=== PATIENT | female | born 1950 | race Caucasian/White ===

== ENCOUNTER 2018-10-03 07:06 | Day surgery (SDC) | payer MEDICARE, OTHER ==
[~2018-10-03] VITALS: Ht 162.6 cm; Wt 88.5 kg
[~2018-10-03 07:06] MED LIST: ASPIRIN EC81 MG; CALCIUM 600 +1 EA13 PO; CLONIDINE HCL0.1 MG PO; FISH OIL 1,2001 EACH PO; HYDROCODON-ACE1 EA10 PO; LANTUS SOL100 UNIT/1; METFORMIN HCL1000 MG PO; PRAVACHOL20 MG PO; RANITIDINE HCL300 M1 PO; TRIAMTERENE-HC1 EAC2 PO; VASOTEC5 MG PO
--- NOTE | 2018-10-03 08:49 | NUR ---
10/03/18 0849 Zoey Sykes 0991-PATIENT ARRIVED TO PACU ON 3L NC LAYING LEFT LATERAL REACTIVE TO VERBAL STIMULI DENIES PAIN OR NAUSEA. ABDOMEN SOFT
--- NOTE | 2018-10-03 16:51 | OR ---
[facility] [address], [place] [address] Signed DATE OF OPERATION: 10/03/2018 SURGEON: Eddi Carrington MD PREOPERATIVE DIAGNOSES: 1. Mother with a history of colon cancer age 87. 2. Both brothers with colonic polyps. 3. Diverticulosis. POSTOPERATIVE DIAGNOSES: 1. 4 mm polyps at 30 cm, 20 cm, and 12 cm. 2. Minimal to moderate sigmoid diverticulosis. PROCEDURE: Colonoscopy with hot biopsy. ESTIMATED BLOOD LOSS: None. INDICATIONS: Kaylyn is a 68-year-old female who presents for followup colonoscopy. She had a mother with colon cancer at age 87 and both her brothers ended up with colonic polyps. Kaylyn is also known to have mild to moderate sigmoid diverticulosis. In the office, I gave Kaylyn a pamphlet on colonoscopy. We looked at that together along with the risks including, but not limited to, gas bloating, crampy abdominal pain, bleeding, perforation requiring surgery, and missed diagnosis. We also discussed the need for IV conscious sedation. She had expressed understanding and wished to proceed. PROCEDURE NOTE: Kaylyn was taken in to our endoscopy suite and placed in the left lateral decubitus position. She was given IV sedation with 6 mg of Versed and 150 mcg of fentanyl. A digital rectal exam was performed and this was unremarkable. The adult colonoscope was introduced and advanced all around into the cecum under direct visualization of camera. It took some abdominal compression and some extra sedation in order to get the scope directly into the cecum itself. Her prep was quite good. The scope was then slowly withdrawn. We took pictures throughout for photodocumentation. We could easily see the appendiceal orifice and the ileocecal valve. The above-mentioned polyps were removed with the help of hot biopsy forceps. Again, she has minimal to moderate sigmoid diverticulosis. They are moderate in size, minimal to moderate in number, and scattered about. Upon retroflexion of the scope, there was no additional pathology noted above Electronically Signed By: EDDI CARRINGTON MD 10/03/18 1651 PATIENT NAME: KAYLYN MONGE OPERATIVE REPORT DATE OF : 46 REPORT #: [id number] PHYSICIAN: EDDI CARRINGTON MD PCP: SAPNA ALY MD REPORT IS CONFIDENTIAL AND NOT TO BE RELEASED WITHOUT AUTHORIZATION [facility] [address] [place] [id number] Signed the anal canal. After this, the gas was suctioned out and the colonoscope removed. Kaylyn tolerated the procedure quite well. RECOMMENDATIONS: I will see Kaylyn back in my office in 7 to 14 days to review her results. Based on her family history, she will need to continue colonoscopy every 5 years so long as her health holds up. MD EFREM Mazariegos/ALEXANDER /[id number] cc: MD Eddi Crawford MD Copies: SAPNA ALY MD, ANDREW L MD ~ Electronically Signed By: EDDI CARRINGTON MD 10/03/18 1651 PATIENT NAME: KAYLYN MONGE OPERATIVE REPORT DATE OF : 46 REPORT #: [id number] PHYSICIAN: EDDI CARRINGTON MD PCP: SAPNA ALY MD REPORT IS CONFIDENTIAL AND NOT TO BE RELEASED WITHOUT AUTHORIZATION
== END 2018-10-03 09:40 | disposition home or self-care (01) ==
LOC: DS 07:06 → OPS 07:06 → DS 08:15 → OPS 08:15
PROVIDERS: Colon & Rectal Surgery
PROC: 0DBE8ZZ Excision of Large Intestine, Via Natural or Artificial Opening Endoscopic (ICD-10-PCS; principal; 2018-10-03 08:15)
DX: Z12.11 Encounter for screening for malignant neoplasm of colon (principal); K63.5 Polyp of colon; K57.30 Diverticulosis of large intestine without perforation or abscess without bleeding; I12.9 Hypertensive chronic kidney disease with stage 1 through stage 4 chronic kidney disease, or unspecified chronic kidney disease; E11.22 Type 2 diabetes mellitus with diabetic chronic kidney disease; N18.3 Chronic kidney disease, stage 3 (moderate); E78.5 Hyperlipidemia, unspecified; Z88.0 Allergy status to penicillin; Z80.0 Family history of malignant neoplasm of digestive organs; Z83.71 Family history of colonic polyps; Z79.899 Other long term (current) drug therapy; Z79.4 Long term (current) use of insulin
CPT/HCPCS: 99153; G0500; J2250; J3010; J7120

== ENCOUNTER 2019-06-27 12:29 | Emergency (ER) | payer MEDICARE, OTHER ==
[~2019-06-27] VITALS: Ht 162.6 cm; Wt 88.5 kg
--- OUTSIDE RECORDS SUMMARY | ~2019-06-27 | XMS | Encounter Summary ---
Demographics + + + | Address | [address] | | | [place] [address] | + + + | Home Phone | | + + + | Preferred Language | Unknown | + + + | Marital Status | | + + + | Church Affiliation | Unknown | + + + | Race | Unknown | + + + | Ethnic Group | Unknown | + + + Author + + + | Author | [facility] | | | and [place] | + + + | Organization | [facility] | | | [...] Team Providers + +------+ + | Care Global Supply Chain Director Name | Role | Phone | + +------+ + PCP | Unavailable | + +------+ + Encounter Details +--------+ + + + + | Date | Type | Department | Care Team | Description | +--------+ + + + + | 04/11/ | Hospital | [facility] | | | | 2001 | Encounter | MED CTR GENERIC OP | | | | | | CONV DEPT [address] | | | | | | [address], | | | | | | [place] [address] | | | | | | [phone] | | | +--------+ + + + [...]
--- OUTSIDE RECORDS SUMMARY | ~2019-06-27 | XMS | Encounter Summary ---
Demographics + + + | Address | [address] | | | [place] [address] | + + + | Home Phone | | + + + | Preferred Language | Unknown | + + + | Marital Status | | + + + | Buddhist Affiliation | Unknown | + + + | Race | Unknown | + + + | Ethnic Group | Unknown | + + + Author + + + | Author | [facility] | | | and [place] | + + + | Organization | [facility] | | | [...] Team Providers + +------+ + | Care Integrated Circuit Layout Designer Name | Role | Phone | + +------+ + PCP | Unavailable | + +------+ + Encounter Details +--------+ + + + + | Date | Type | Department | Care Team | Description | +--------+ + + + + | 01/25/ | Hospital | [facility] | | | | 2006 | Encounter | MED CTR LABORATORY | | | | | | [address] | | | | | | [place] | | | | | | [address] | | | | | | [phone] | | | +--------+ + + + [...]
--- OUTSIDE RECORDS SUMMARY | ~2019-06-27 | XMS | Encounter Summary ---
Demographics + + + | Address | [address] | | | [place] [address] | + + + | Home Phone | | + + + | Preferred Language | Unknown | + + + | Marital Status | | + + + | Congregational Affiliation | Unknown | + + + | Race | Unknown | + + + | Ethnic Group | Unknown | + + + Author + + + | Author | [facility] | | | and [place] | + + + | Organization | [facility] | | | and [...] Team Providers + +------+ + | Care Service Consultant Name | Role | Phone | + +------+ + | Clarence Ontiveros | PCP | | | MD | | | + +------+ + Reason for Visit + + + | Reason | Comments | + + + | Diarrhea | x 5 days | + + + | Nausea | x 5 days/ occasional vomiting/ tested neg for inlfuenza on | | | tuesday | + + + Encounter Details +--------+---------+ + + + | Date | Type | Department | Care Team | Description | +--------+---------+ + + + | 10/10/ | Office | [facility] | Yana Magana | Diarrhea, | | 2018 | Visit | CARE [address] | Jeremy Harper MD | unspecified type | | | | [place] | [address] | (Primary Dx); Nausea | | | | [address] | [place] | | | | | [phone] | [address] | | | | | | | | +--------+---------+ + + + Social History + +-------+ +--------+------+ | Tobacco Use | Types | Packs/Day | Years | Date | | | | | Used | | + +-------+ +--------+------+ | Never Smoker | | | | | + +-------+ +--------+------+ + +---+---+---+ | Smokeless Tobacco: | | | | | Never Used | | | | + +---+---+---+ + + + | Sex Assigned at [...] + + documented as of this encounter Last Filed Vital Signs + + + + + | Vital Sign | Reading | Time Taken | Comments | + + + + + | Blood Pressure | 119/61 | 10/10/2017 2:51 PM | | | | | PDT | | + + + + + | Pulse | 72 | 10/10/2017 2:51 PM | | | | | PDT | | + + + + + | Temperature | 37.9 C (100.2 F) | 10/10/2017 2:51 PM | | | | | PDT | | + + + + + | Respiratory Rate | 16 | 10/10/2017 2:51 PM | | | | | PDT | | + + + + + | Oxygen Saturation | 94% | 10/10/2017 2:51 PM | | | | | PDT | | + + + + + | Inhaled Oxygen | - | - | | | Concentration | | | | + + + + + | Weight | 82.6 kg (182 lb) | 10/10/2017 2:51 PM | | | | | PDT | | + + + + + | Height | 162.6 cm (5' 4") | 10/10/2017 2:51 PM | | | | | PDT | | + + + + + | Body Mass Index | 31.24 | 10/10/2017 2:51 PM | | | | | PDT | | + + + + + documented in this encounter Patient Instructions Patient Instructions Yana Magana Jr., MD - 10/10/2017 2:00 PM PDTCall for stoo l culture results in 3 days Take medication as prescribed for nausea Follow-up with your primary care provider Go to the emergency room if your condition worsens documented in this encounter Progress Notes Jo-Ann Kirk RN - 10/10/2017 2:00 PM PDTAfter verifying identity, administered Ondanse nicola 8mg. SL as ordered per Dr. Magana. Jo-Ann Kirk Yana Coulter Jr., MD - 10/10/2017 2:00 PM Jose Juan Alatorre Chief Complaint: Diarrhea 3 times a day with one episode of vomiting daily for the past we ek HPI: Patient presents with a one-week history of illness. She's had diarrhea 3 times sarah y without blood or mucus and no abdominal pain over the past week. She's had nausea persist ently with one episode of vomiting daily. No blood in the vomitus. She denies cough or oth er symptoms. She denies recent travel or camping. She has not eaten anything unusual. She has not been exposed to other people with similar illness. She is diabetic Past medical history, past surgical history, medication reviewed. Physical Exam: No acute distress, alert and oriented, non-toxic in appearance BP 119/61 | Pulse 72 | Temp 37.9 C (100.2 F) (Temporal) | Resp 16 | Ht 1.626 m (5' 4") | Wt 82.6 kg (182 lb) | SpO2 94% | BMI 31.24 kg/m Chest: Good breath sounds bilaterally without rales rhonchi or wheezes Heart: Regular rhythm without murmur gallop or rub Abdomen: Soft, bowel sounds normal, no hepatosplenomegaly, no CVA tenderness, no localized tenderness guarding or rebound Diagnosis: Gastroenteritis Plan: Stool culture-call in 3 days, lactoferrin, Zofran, follow-up with primary care provi sara This note dictated with Rema and was not proofread. Emily field in this encounter Plan of Treatment Not on filedocumented as of this encounter Procedures + +--------+ + + + | Procedure Name | Priori | Date/Time | Associated Diagnosis | Comments | | | ty | | | | + +--------+ + + + | CAMPYLOBACTER | Routin | 10/10/2017 | Diarrhea, | Results for this | | AG,QUAL | e | 4:14 PM | unspecified type | procedure are in the | | | | PDT | | results section. | + +--------+ + + + | CULTURE, STOOL | Routin | 10/10/2017 | Diarrhea, | Results for this | | RESULT | e | 4:14 PM | unspecified type | procedure are in the | | | | PDT | | results section. | + +--------+ + + + | SHIGATOXIN 1 AND 2 | Routin | 10/10/2017 | Diarrhea, | Results for this | | | e | 4:14 PM | unspecified type | procedure are in the | | | | PDT | | results section. | + +--------+ + + + | LACTOFERRIN, FECAL, | Routin | 10/10/2017 | Diarrhea, | Results for this | | QUAL | e | 4:14 PM | unspecified type | procedure are in the | | | | PDT | | results section. | + +--------+ + + + | CULTURE, STOOL | Routin | 10/10/2017 | Diarrhea, | Results for this | | | e | 4:14 PM | unspecified type | procedure are in the | | | | PDT | | results section. | + +--------+ + + + documented in this encounter Results Lawrence Ag,Qual (10/10/2017 4:14 PM PDT) + + + + + + | Component | Value | Ref Range | Performed | Pathologist | | | | | At | Signature | + + + + + + | Campylobact | Negative | Negative | [facility] | | | er AG, Qual | | | [facility] | | | | | | MEDICAL | | | | | | CENTER - | | | | | | LABORATORY | | + + + + + + + + | Specimen | + + | Stool - Stool | | specimen (specimen) | + + + + + + + | Performing | Address | City/State/Zipcode | Phone Number | | Organization | | | | + + + + + | [facility] | [address] | [place] | [phone] | | [facility] | | [address] | | | - LABORATORY | | | | + + + + + Culture, Stool Result (10/10/2017 4:14 PM PDT) + + + + + + | Component | Value | Ref Range | Performed | Pathologist | | | | | At | Signature | + + + + + + | Culture | No Salmonella, Shigella, | | [facility] | | | | Aeromonas, Plesiomonas, | | [facility] | | | | E. coli O157 or | | MEDICAL | | | | Yersinia isolated. | | CENTER - | | | | | | LABORATORY | | + + + + + + | Culture | 4+ Usual FloraComment: | | [facility] | | | | Consistent with usual | | [facility] | | | | enteric marifer. | | MEDICAL | | | | | | CENTER - | | | | | | LABORATORY | | + + + + + + + + | Specimen | + + | Stool - Stool | | specimen (specimen) | + + + + + + + | Performing | Address | City/State/Zipcode | Phone Number | | Organization | | | | + + + + + | [facility] | [address] | [place] | [phone] | | [facility] | | [address] | | | - LABORATORY | | | | + + + + + Shigatoxin 1 and 2 (10/10/2017 4:14 PM PDT) + + + + + + | Component | Value | Ref Range | Performed | Pathologist | | | | | At | Signature | + + + + + + | Shigatoxin | Negative | Negative | [facility] | | | 1 | | | [facility] | | | | | | MEDICAL | | | | | | CENTER - | | | | | | LABORATORY | | + + + + + + | Shigatoxin | Negative | Negative | [facility] | | | 2 | | | [facility] | | | | | | MEDICAL | | | | | | CENTER - | | | | | | LABORATORY | | + + + + + + + + | Specimen | + + | Stool - Stool | | specimen (specimen) | + + + + + + + | Performing | Address | City/State/Zipcode | Phone Number | | Organization | | | | + + + + + | [facility] | [address] | [place] | [phone] | | [facility] | | [address] | | | - LABORATORY | | | | + + + + + Lactoferrin, Fecal, Qual (10/10/2017 4:14 PM PDT) + + + + + + | Component | Value | Ref Range | Performed | Pathologist | | | | | At | Signature | + + + + + + | Lactoferrin | Negative | Negative | [facility] | | | , Qual | | | [facility] | | | | | | MEDICAL | | | | | | CENTER - | | | | | | LABORATORY | | + + + + + + + + | Specimen | + + | Stool - Stool | | specimen (specimen) | + + + + + + + | Performing | Address | City/State/Zipcode | Phone Number | | Organization | | | | + + + + + | [facility] | [address] | [place], [place] | [phone] | | [facility] | | [address] | | | - LABORATORY | | | | + + + + + documented in this encounter Visit Diagnoses + + | Diagnosis | + + | Diarrhea, unspecified type - Primary | + + | Nausea Nausea alone | + + documented in this encounter Administered Medications + +--------+ +------+------+------+ | Medication Order | MAR | Action | Dose | Rate | Site | | | Action | Date | | | | + +--------+ +------+------+------+ | ondansetron (ZOFRAN ODT) | Given | 10/11/19 | 8 mg | | | | disintegrating tablet 8 mg 8 mg, | | 18 3:52 | | | | | Oral, ONCE, 10/10/17 at 1615, | | PM PDT | | | | | For 1 dose | | | | | | + +--------+ +------+------+------+ +---+---+ | | | +---+---+ documented in this encounter
--- OUTSIDE RECORDS SUMMARY | ~2019-06-27 | XMS | Clinical Summary ---
Demographics + + + | Address | [address] | | | [place] [address] | + + + | Home Phone | | + + + | Preferred Language | Unknown | + + + | Marital Status | | + + + | Quaker Affiliation | Unknown | + + + | Race | Unknown | + + + | Ethnic Group | Unknown | + + + Author + + + | Author | [facility] | | | and [place] | + + + | Organization | [facility] | | | and [...] Team Providers + +------+ + | Care Dietetics Director Name | Role | Phone | + +------+ + | Clarence Ontiveros | PCP | | | MD | | | + +------+ + Allergies + + + + + + | Active Allergy | Reactions | Severity | Noted | Comments | | | | | Date | | + + + + + + | Penicillins | | | 10/11/19 | hives | | | | | 18 | | + + + + + + Medications + + + +---------+------+------+-------+ | Medication | Sig | Dispensed | Refills | Star | End | Statu | | | | | | t | Date | s | | | | | | Date | | | + + + +---------+------+------+-------+ | cloNIDine | Take 0.1 mg by mouth | | 0 | | | Activ | | (CATAPRES) 0.1 mg | 2 times daily. | | | | | e | | tablet | | | | | | | + + + +---------+------+------+-------+ | metFORMIN | Take 1,000 mg by | | 0 | | | Activ | | (GLUCOPHAGE) 1000 MG | mouth 2 times daily | | | | | e | | tablet | (with breakfast & | | | | | | | | dinner). | | | | | | + + + +---------+------+------+-------+ | raNITIdine | Take 300 mg by mouth | | 0 | | | Activ | | (ZANTAC) 300 MG | every evening. | | | | | e | | capsule | | | | | | | + + + +---------+------+------+-------+ | | Take 1 tablet by | | 0 | | | Activ | | triamterene-hydrochl | mouth Daily. | | | | | e | | orothiazide | | | | | | | | (MAXZIDE) 75-50 mg | | | | | | | | per tablet | | | | | | | + + + +---------+------+------+-------+ | enalapril | Take 5 mg by mouth | | 0 | | | Activ | | (VASOTEC) 5 mg | Daily. | | | | | e | | tablet | | | | | | | + + + +---------+------+------+-------+ | pravastatin | Take 20 mg by mouth | | 0 | | | Activ | | (PRAVACHOL) 20 mg | nightly. | | | | | e | | tablet | | | | | | | + + + +---------+------+------+-------+ | aspirin 81 MG | Take 81 mg by mouth | | 0 | | | Activ | | tablet | Daily. | | | | | e | + + + +---------+------+------+-------+ | fish oil 1,000 mg | Take 1,000 mg by | | 0 | | | Activ | | capsule | mouth 3 times daily. | | | | | e | + + + +---------+------+------+-------+ | Calcium | Take by mouth. | | 0 | | | Activ | | Carb-Cholecalciferol | | | | | | e | | (CALCIUM 500 + D3) | | | | | | | | 500-600 MG-UNIT TABS | | | | | | | + + + +---------+------+------+-------+ | Insulin Glargine | Inject 18 Units | | 0 | | | Activ | | (YOUSIF MENDEZ SC) | under the skin. | | | | | e | + + + +---------+------+------+-------+ | allopurinol | Take 300 mg by mouth | | 0 | | | Activ | | (ZYLOPRIM) 300 mg | Daily. | | | | | e | | tablet | | | | | | | + + + +---------+------+------+-------+ | ondansetron | Take 1 tablet by | 10 | 0 | 03/1 | | Activ | | (ZOFRAN ODT) 8 mg | mouth every 8 hours | tablet | | 2/20 | | e | | disintegrating | as needed for | | | 18 | | | | tabletIndications: | Nausea. | | | | | | | Nausea | | | | | | | + + + +---------+------+------+-------+ Active Problems No known active problems Social History + +-------+ +--------+------+ | Tobacco [...] recent travel history available. | + + Last Filed Vital Signs + + + [...] | | + + + + + Plan of Treatment + + + + + | Health Maintenance | Due Date | Last Done | Comments | + + + + + | Hepatitis C | | | | | Screening | 8 | | | + + + + + | Vaccine: | | | | | Dtap/Tdap/Td (1 - | 7 | | | | Tdap) | | | | + + + + + | Colorectal Cancer | | | | | Screening | 8 | | | | (Colonoscopy) | | | | + + + + + | Vaccine: Zoster (1 | | | | | of 2) | 8 | | | + + + + + | Breast Cancer | | | | | Screening | 3 | | | + + + + + | Vaccine: | | | | | Pneumococcal 65+ (1 | 3 | | | | of 2 - PCV13) | | | | + + + + + | Adult Annual | | | | | Wellness Visit | 5 | | | + + + + + | Vaccine: Influenza | | | | | (#1) | 9 | | | + + + + + Results Not on filefrom Last 3 Months Insurance + +--------+ +--------+ + +--------+ | Payer | Benefi | Subscriber | Effect | Phone | Address | Type | | | t Plan | ID | duc | | | | | | / | | Dates | | | | | | Group | | | | | | + +--------+ +--------+ + +--------+ | MEDICARE | MEDICA | [id number] | 04/01/20 | [phone] | | Medica | | | RE | | 15-Pre | 5 | | re | | | PART A | | sent | | | | | | AND B | | | | | | + +--------+ +--------+ + +--------+ | MODA | MODA | [id number] | 08/01/19 | [phone] | [address] | Indemn | | | HEALTH | | 17-Pre | 9 | [address] | ity | | | MDCR | | sent | | [place], | | | | [place] | | | | [place] [address] | | + +--------+ +--------+ + +--------+ + +--------+ +--------+ + + | Guarantor Name | Accoun | Relation to | Date | Phone | Billing Address | | | t Type | Patient | of | | | | | | | | | | + +--------+ +--------+ + + | Kaylyn Alatorre | Person | Self | [birth year] | [address] | | | al/Aamir | | 1950 | [phone] | [place] | | | ember | | | [address] (Home) | [phone] | + +--------+ +--------+ + + Advance Directives + + + + + | Type | Date Recorded | Patient | Explanation | | | | Fermentation Scientist | | + + + + + | Power of | | | | | Citrus Picker | | | | + + + + + | Advance | | | | | Directive | | | | + + + + +
--- OUTSIDE RECORDS SUMMARY | ~2019-06-27 | XMS | Encounter Summary ---
Demographics + + + | Address | [address] | | | [place] [address] | + + + | Home Phone | | + + + | Preferred Language | Unknown | + + + | Marital Status | | + + + | Temple Affiliation | Unknown | + + + | Race | Unknown | + + + | Ethnic Group | Unknown | + + + Author + + + | Author | [facility] | | | and [place] | + + + | Organization | [facility] | | | [...] Team Providers + +------+ + | Care Tnt Line Supervisor Name | Role | Phone | + +------+ + PCP | Unavailable | + +------+ + Encounter Details +--------+ + + + + | Date | Type | Department | Care Team | Description | +--------+ + + + + | 05/18/ | [facility] | [facility] | | | | 2006 | Encounter | MED CTR GENERIC OP | | | | | | CONV DEPT [address] | | | | | | [address], | | | | | | [place] [address] | | | | | | [phone] | | | +--------+ + + + [...]
--- OUTSIDE RECORDS SUMMARY | ~2019-06-27 | XMS | Encounter Summary ---
Demographics + + + | Address | [address] | | | [place] [address] | + + + | Home Phone | | + + + | Preferred Language | Unknown | + + + | Marital Status | | + + + | Evangelical Affiliation | Unknown | + + + | Race | Unknown | + + + | Ethnic Group | Unknown | + + + Author + + + | Author | [facility] | | | and [place] | + + + | Organization | [facility] | | | [...] Team Providers + +------+ + | Care Sheet Catcher Name | Role | Phone | + +------+ + PCP | Unavailable | + +------+ + Encounter Details +--------+ + + + + | Date | Type | Department | Care Team | Description | +--------+ + + + + | 04/11/ | Hospital | [facility] | | | | 2001 | Encounter | MED CTR GENERIC OP | | | | | | CONV DEPT [address] | | | | | | [address], | | | | | | [place] [address] | | | | | | [phone] | | | +--------+ + + + [...]
--- OUTSIDE RECORDS SUMMARY | ~2019-06-27 | XMS | Encounter Summary ---
Demographics + + + | Address | [address] | | | [place] [address] | + + + | Home Phone | | + + + | Preferred Language | Unknown | + + + | Marital Status | | + + + | Judaism Affiliation | Unknown | + + + | Race | Unknown | + + + | Ethnic Group | Unknown | + + + Author + + + | Author | [facility] | | | and [place] | + + + | Organization | [facility] | | | and [...] Team Providers + +------+ + | Care Machine Veneer Repairer Name | Role | Phone | + +------+ + PCP | Unavailable | + +------+ + Encounter Details +--------+ + + + + | Date | Type | Department | Care Team | Description | +--------+ + + + + | 01/26/ | Hospital | [facility] | | | | 2001 - | Encounter | MED CTR DIETARY | | | | | | [address] | | | | 02/25/ | | [place] [address] | | | | 2001 | | [phone] | | | +--------+ + + + [...]
--- OUTSIDE RECORDS SUMMARY | ~2019-06-27 | XMS | Encounter Summary ---
Demographics + + + | Address | [address] | | | [place] [address] | + + + | Home Phone | | + + + | Preferred Language | Unknown | + + + | Marital Status | | + + + | Mandaen Affiliation | Unknown | + + + | Race | Unknown | + + + | Ethnic Group | Unknown | + + + Author + + + | Author | [facility] | | | and [place] | + + + | Organization | [facility] | | | [...] Team Providers + +------+ + | Care Clinical Documentation Developer Name | Role | Phone | + +------+ + PCP | Unavailable | + +------+ + Encounter Details +--------+ + + + + | Date | Type | Department | Care Team | Description | +--------+ + + + + | 01/26/ | Hospital | [facility] | | | | 2001 - | Encounter | MED CTR DIETARY | | | | | | [address] | | | | 02/25/ | | [place] [address] | | | | 2001 | | [phone] | | | +--------+ + + + [...]
--- OUTSIDE RECORDS SUMMARY | ~2019-06-27 | XMS | Encounter Summary ---
Demographics + + + | Address | [address] | | | [place] [address] | + + + | Home Phone | | + + + | Preferred Language | Unknown | + + + | Marital Status | | + + + | Mu-Ism Affiliation | Unknown | + + + | Race | Unknown | + + + | Ethnic Group | Unknown | + + + Author + + + | Author | [facility] | | | and [place] | + + + | Organization | [facility] | | | [...] Team Providers + +------+ + | Care Student Accounts Coordinator Name | Role | Phone | + +------+ + PCP | Unavailable | + +------+ + Encounter Details +--------+ + + + + | Date | Type | Department | Care Team | Description | +--------+ + + + + | 05/18/ | [facility] | [facility] | | | | 2006 | Encounter | MED CTR GENERIC OP | | | | | | CONV DEPT [address] | | | | | | [address] [place], | | | | | | [place] [address] | | | | | | [phone] | | | +--------+ + + + [...]
--- OUTSIDE RECORDS SUMMARY | ~2019-06-27 | XMS | Clinical Summary ---
Demographics + + + | Address | [address] | | | [place] [address] | + + + | Home Phone | | + + + | Preferred Language | Unknown | + + + | Marital Status | | + + + | Anglican Affiliation | Unknown | + + + | Race | Unknown | + + + | Ethnic Group | Unknown | + + + Author + + + | Author | [facility] | | | and [place] | + + + | Organization | [facility] | | | [...] Team Providers + +------+ + | Care Health Education Aide Name | Role | Phone | + [...] + +--------+ | MEDICARE | MEDICA | [id number] | 04/01/20 | [phone] | | Medica | | | RE | | 15-Pre | 5 | | re | | | PART A | | sent | | | | | | AND B | | | | | | + +--------+ +--------+ + +--------+ | MODA | MODA | [id number] | 08/01/19 | [phone] | [address] | Indemn | | | HEALTH | | 17-Pre | 9 | [phone] | ity | | | MDCR | | sent | | [place], | | | | [place] | | | | [place] [address] | | + +--------+ +--------+ + +--------+ [...] | | al/Aamir | | 1950 | [phone] | [place] | | | em[place] | | | 5 (Home) | [address] | + +--------+ +--------+ + + Advance Directives + + + + + | Type | Date Recorded | Patient | Explanation | | | | Medical Billing Coordinator | | + + + + + | Power of | | | | | Piece Goods Packer | | | | + + + + + | Advance | | | | | Directive | | | | + + + + +
--- OUTSIDE RECORDS SUMMARY | ~2019-06-27 | XMS | Encounter Summary ---
Demographics + + + | Address | [address] | | | [place] [address] | + + + | Home Phone | | + + + | Preferred Language | Unknown | + + + | Marital Status | | + + + | Voodoo Affiliation | Unknown | + + + | Race | Unknown | + + + | Ethnic Group | Unknown | + + + Author + + + | Author | [facility] | | | and [place] | + + + | Organization | [facility] | | | [...] Team Providers + +------+ + | Care Entry Level Web Developer Name | Role | Phone | [...] | 10/13/ | Telephone | [facility] [place] [facility] | Yana Magana | Results | | 2017 | | CARE [address] | Jeremy Harper MD | | | | | [place] | [address] | | | | | [address] | [place] | | | | | [phone] | [address] | | | | | | | [...]
--- OUTSIDE RECORDS SUMMARY | ~2019-06-27 | XMS | Encounter Summary ---
Demographics + + + | Address | [address] | | | [place] [address] | + + + | Home Phone | | + + + | Preferred Language | Unknown | + + + | Marital Status | | + + + | Zoroastrianism Affiliation | Unknown | + + + | Race | Unknown | + + + | Ethnic Group | Unknown | + + + Author + + + | Author | [facility] | | | and [place] | + + + | Organization | [facility] | | | [...] Team Providers + +------+ + | Care Acid Cutter Name | Role | Phone | + +------+ + PCP | Unavailable | + +------+ + Encounter Details +--------+ + + + + | Date | Type | Department | Care Team | Description | +--------+ + + + + | 04/27/ | Hospital | [facility] | | | | 2006 | Encounter | MED CTR LABORATORY | | | | | | [address] | | | | | | [place] | | | | | | [address] | | | | | | [phone] | | | +--------+ + + + [...]
--- OUTSIDE RECORDS SUMMARY | ~2019-06-27 | XMS | Encounter Summary ---
Demographics + + + | Address | [address] | | | [place] [address] | + + + | Home Phone | | + + + | Preferred Language | Unknown | + + + | Marital Status | | + + + | Hindu Affiliation | Unknown | + + + | Race | Unknown | + + + | Ethnic Group | Unknown | + + + Author + + + | Author | [facility] | | | and [place] | + + + | Organization | [facility] | | | [...] Team Providers + +------+ + | Care Junior Technical Writer Name | Role | Phone | + +------+ + PCP | Unavailable | + +------+ + Encounter Details +--------+ + + + + | Date | Type | Department | Care Team | Description | +--------+ + + + + | 04/27/ | Hospital | [facility] | | | | 2006 | Encounter | MED CTR LABORATORY | | | | | | [address] | | | | | | [place] | | | | | | [address] | | | | | | [phone] | | | +--------+ + + + [...]
--- OUTSIDE RECORDS SUMMARY | ~2019-06-27 | XMS | Encounter Summary ---
Demographics + + + | Address | [address] | | | [place] [address] | + + + | Home Phone [...] Team Providers + +------+ + | Care Display Coordinator Name | Role | Phone | [...] | 10/13/ | Telephone | [facility] [place] [facility] | Yana Magana | Results | | 2017 | | CARE [address] | Jeremy Harper MD | | | | | [place] | [address] | | | | | [address] | [place] | | | | | [phone] | [address] | | | | | | | [...]
--- OUTSIDE RECORDS SUMMARY | ~2019-06-27 | XMS | Encounter Summary ---
Demographics + + + | Address | [address] | | | [place] [address] | + + + | Home Phone | | + + + | Preferred Language | Unknown | + + + | Marital Status | | + + + | Scientologist Affiliation | Unknown | + + + | Race | Unknown | + + + | Ethnic Group | Unknown | + + + Author + + + | Author | [facility] | | | and [place] | + + + | Organization | [facility] | | | [...] Team Providers + +------+ + | Care Utility Agent Name | Role | Phone | + [...] + + | 10/10/ | Office | [facility] | Yana Magana | Diarrhea, | | 2018 | Visit | CARE [address] | Jeremy Harper MD | unspecified type | | | | [place] | [address] | (Primary Dx); Nausea | | | | [address] | [place] | | | | | [phone] | [address] | | | | | | | [...] care provi sara This note dictated with eRma and was not proofread. Emily field in [...] er AG, Qual | | | [facility] | | | | | | [...] [address] | [place] | [phone] | | [facility] | | [address] | | | - LABORATORY | | [...] [address] | [place] | [phone] | | [facility] | | [address] | | | - LABORATORY | | [...] + | [facility] | [address] | [place] | [phone] | | [facility] | | [address] | | | - LABORATORY | | [...] + | [facility] | [address] | [place], [place] | [phone] | | [facility] | | [address] | | | - LABORATORY | | [...]
--- OUTSIDE RECORDS SUMMARY | ~2019-06-27 | XMS | Encounter Summary ---
Demographics + + + | Address | [address] | | | [place] [address] | + + + | Home Phone [...] Team Providers + +------+ + | Care Hydramatic Specialist Name | Role | Phone | + +------+ + PCP | Unavailable | + +------+ + Encounter Details +--------+ + + + + | Date | Type | Department | Care Team | Description | +--------+ + + + + | 01/25/ | Hospital | [facility] | | | | 2006 | Encounter | MED CTR LABORATORY | | | | | | [address] | | | | | | [place] | | | | | | [address] | | | | | | [phone] | | | +--------+ + + + [...]
[2019-06-27] MEDS ORDERED: NORCO 5-325 TA1 EACH PO (15:15)
[2019-06-27] MEDS ORDERED: MACROBID 100 M100 MG PO (16:03)
== END 2019-06-27 16:40 | disposition home or self-care (01) ==
LOC: ED 12:29
DX: S20.212A Contusion of left front wall of thorax, initial encounter (principal); N39.0 Urinary tract infection, site not specified; W01.198A Fall on same level from slipping, tripping and stumbling with subsequent striking against other object, initial encounter; I10 Essential (primary) hypertension; E11.9 Type 2 diabetes mellitus without complications; Z88.0 Allergy status to penicillin; Z79.899 Other long term (current) drug therapy; Z79.82 Long term (current) use of aspirin; Z79.4 Long term (current) use of insulin
CPT/HCPCS: 71101; 81001; 96374; 99285-25; A9270; J1885

== ENCOUNTER 2019-06-30 22:26 | Emergency (ER) | payer MEDICARE, OTHER ==
[~2019-06-30] VITALS: Ht 162.6 cm; Wt 88.5 kg
--- OUTSIDE RECORDS SUMMARY | ~2019-06-30 | XMS | Encounter Summary ---
Demographics + + + | Address | [address] | | | [place] [address] | + + + | Home Phone | | + + + | Preferred Language | Unknown | + + + | Marital Status | | + + + | Temple Affiliation | Unknown | + + + | Race | Unknown | + + + | Ethnic Group | Unknown | + + + Author + + + | Author | [facility] | | | and [place] | + + + | Organization | [facility] | | | and [place] | + + + | Address | Unknown | + + + | Phone | Unavailable | + + + Support + + +---------+ + | Name | Relationship | Address | Phone | + + +---------+ + | Lc Gama | ECON | Unknown | | + + +---------+ + Care Team Providers + +------+ + | Care Bass String Winder Name | Role | Phone | + +------+ + PCP | Unavailable | + +------+ + Encounter Details +--------+ + + + + | Date | Type | Department | Care Team | Description | +--------+ + + + + | 01/25/ | Hospital | [facility] | | | | 2006 | Encounter | MED CTR LABORATORY | | | | | | [address] | | | | | | [place] | | | | | | [address] | | | | | | [phone] | | | +--------+ + + + + Social History + +-------+ +--------+------+ | Tobacco Use | Types | Packs/Day | Years | Date | | | | | Used | | + +-------+ +--------+------+ | Never Assessed | | | | | + +-------+ +--------+------+ + + + | Sex Assigned at | Date Recorded | | | | + + + | Not on file | | + + + + + + + | Job Start Date | Occupation | Industry | + + + + | Not on file | Not on file | Not on file | + + + + + + + + | Travel History | Travel Start | Travel End | + + + + + + | No recent travel history available. | + + documented as of this encounter Plan of Treatment Not on filedocumented as of this encounter Visit Diagnoses Not on filedocumented in this encounter"
--- OUTSIDE RECORDS SUMMARY | ~2019-06-30 | XMS | Encounter Summary ---
Demographics + + + | Address | [address] | | | [place] [address] | + + + | Home Phone | | + + + | Preferred Language | Unknown | + + + | Marital Status | | + + + | Yarsanism Affiliation | Unknown | + + + | Race | Unknown | + + + | Ethnic Group | Unknown | + + + Author + + + | Author | [facility] | | | and [place] | + + + | Organization | [facility] | | [...] Team Providers + +------+ + | Care Stripper And Printer Name | Role | Phone | + +------+ + PCP | Unavailable | + +------+ + Encounter Details +--------+ + + + + | Date | Type | Department | Care Team | Description | +--------+ + + + + | 04/27/ | Hospital | [facility] | | | | 2006 | Encounter | MED CTR LABORATORY | | | | | | [address] | | | | | | [place] | | | | | | [address] | | | | | | [phone] | | | +--------+ + + + [...]
--- OUTSIDE RECORDS SUMMARY | ~2019-06-30 | XMS | Encounter Summary ---
Demographics + + + | Address | [address] | | | [place] [address] | + + + | Home Phone | | + + + | Preferred Language | Unknown | + + + | Marital Status | | + + + | Temple Affiliation | Unknown | + + + | Race | Unknown | + + + | Ethnic Group | Unknown | + + + Author + + + | Author | [facility] | | | and [place] | + + + | Organization | [facility] | | | [...] Team Providers + +------+ + | Care Rehab Spec Name | Role | Phone | + +------+ + PCP | Unavailable | + +------+ + Encounter Details +--------+ + + + + | Date | Type | Department | Care Team | Description | +--------+ + + + + | 04/27/ | Hospital | [facility] | | | | 2006 | Encounter | MED CTR LABORATORY | | | | | | [address] | | | | | | [place] | | | | | | [address] | | | | | | [phone] | | | +--------+ + + + [...]
--- OUTSIDE RECORDS SUMMARY | ~2019-06-30 | XMS | Encounter Summary ---
Demographics + + + | Address | [address] | | | [place] [address] | + + + | Home Phone | | + + + | Preferred Language | Unknown | + + + | Marital Status | | + + + | Hoahaoism Affiliation | Unknown | + + + | Race | Unknown | + + + | Ethnic Group | Unknown | + + + Author + + + | Author | [facility] | | | and [place] | + + + | Organization | [facility] | | | [...] Team Providers + +------+ + | Care Manager Supply Name | Role | Phone | + +------+ + PCP | Unavailable | + +------+ + Encounter Details +--------+ + + + + | Date | Type | Department | Care Team | Description | +--------+ + + + + | 05/18/ | [facility] | [facility] | | | | 2006 | Encounter | MED CTR GENERIC OP | | | | | | CONV DEPT [address] | | | | | | [address], | | | | | | [place] [address] | | | | | | [phone] | | | +--------+ + + + [...]
--- OUTSIDE RECORDS SUMMARY | ~2019-06-30 | XMS | Encounter Summary ---
Demographics + + + | Address | [address] | | | [place] [address] | + + + | Home Phone | | + + + | Preferred Language | Unknown | + + + | Marital Status | | + + + | Roman Catholic Affiliation | Unknown | + + + | Race | Unknown | + + + | Ethnic Group | Unknown | + + + Author + + + | Author | [facility] | | | and [place] | + + + | Organization | [facility] | | | [...] Team Providers + +------+ + | Care Retail Service Technician Name | Role | Phone | + +------+ + PCP | Unavailable | + +------+ + Encounter Details +--------+ + + + + | Date | Type | Department | Care Team | Description | +--------+ + + + + | 04/11/ | Hospital | [facility] | | | | 2001 | Encounter | MED CTR GENERIC OP | | | | | | CONV DEPT [address] | | | | | | [address], | | | | | | [place] [address] | | | | | | [phone] | | | +--------+ + + + [...]
--- OUTSIDE RECORDS SUMMARY | ~2019-06-30 | XMS | Encounter Summary ---
Demographics + + + | Address | [address] | | | [place] [address] | + + + | Home Phone | | + + + | Preferred Language | Unknown | + + + | Marital Status | | + + + | Moravian Affiliation | Unknown | + + + | Race | Unknown | + + + | Ethnic Group | Unknown | + + + Author + + + | Author | [facility] | | | and [place] | + + + | Organization | [facility] | | | [...] Team Providers + +------+ + | Care Urinalysis Technician Name | Role | Phone | + +------+ + | Clarence Ontiveros | PCP | | | MD | | | + +------+ + Reason for Visit +---------+ + | Reason | Comments | +---------+ + | Results | | +---------+ + Encounter Details +--------+ + + + + | Date | Type | Department | Care Team | Description | +--------+ + + + + | 10/13/ | Telephone | [facility] [place] [facility] | Yana Magana | Results | | 2017 | | CARE [address] | Jeremy Harper MD | | | | | [place] | [address] | | | | | [address] | [place] | | | | | [phone] | [address] | | | | | | | | +--------+ + + + [...]
--- OUTSIDE RECORDS SUMMARY | ~2019-06-30 | XMS | Clinical Summary ---
Demographics + + + | Address | [address] | | | [place] [address] | + + + | Home Phone | | + + + | Preferred Language | Unknown | + + + | Marital Status | | + + + | Anglican Affiliation | Unknown | + + + [...] Team Providers + +------+ + | Care Speech Therapist Early Intervention Name | Role | Phone | + [...] + +--------+ | MEDICARE | MEDICA | [id number] | 04/01/20 | [phone] | | Medica | | | RE | | 15-Pre | 5 | | re | | | PART A | | sent | | | | | | AND B | | | | | | + +--------+ +--------+ + +--------+ | MODA | MODA | [id number] | 08/01/19 | [phone] | [address] | Indemn | | | HEALTH | | 17-Pre | 9 | [address] | ity | | | MDCR | | sent | | [place], | | | | [place] | | | | [place] [address] | | + +--------+ +--------+ + +--------+ [...] | | al/Aamir | | 1950 | [phone] | [place] | | | [place] | | | 5 (Home) | [address] | + +--------+ +--------+ + + Advance Directives + + + + + | Type | Date Recorded | Patient | Explanation | | | | Bumper And Painter | | + + + + + | Power of | | | | | Software Engineer | | | | + + + + + | Advance | | | | | Directive | | | | + + + + +
--- OUTSIDE RECORDS SUMMARY | ~2019-06-30 | XMS | Encounter Summary ---
Demographics + + + | Address | [address] | | | [place] [address] | + + + | Home Phone | | + + + | Preferred Language | Unknown | + + + | Marital Status | | + + + | Zoroastrianism Affiliation | Unknown | + + + | Race | Unknown | + + + | Ethnic Group | Unknown | + + + Author + + + | Author | [facility] | | | and [place] | + + + | Organization | [facility] | | [...] Team Providers + +------+ + | Care Territory Representative Name | Role | Phone | + +------+ + PCP | Unavailable | + +------+ + Encounter Details +--------+ + + + + | Date | Type | Department | Care Team | Description | +--------+ + + + + | 05/18/ | [facility] | [facility] | | | | 2006 | Encounter | MED CTR GENERIC OP | | | | | | CONV DEPT [address] | | | | | | [address], | | | | | | [place] [address] | | | | | | [phone] | | | +--------+ + + + [...]
--- OUTSIDE RECORDS SUMMARY | ~2019-06-30 | XMS | Encounter Summary ---
Demographics + + + | Address | [address] | | | [place] [address] | + + + | Home Phone | | + + + | Preferred Language | Unknown | + + + | Marital Status | | + + + | Catholic Affiliation | Unknown | + + + | Race | Unknown | + + + | Ethnic Group | Unknown | + + + Author + + + | Author | [facility] | | | and [place] | + + + | Organization | [facility] | | | and [...] Team Providers + +------+ + | Care Game Designer Name | Role | Phone | + +------+ + PCP | Unavailable | + +------+ + Encounter Details +--------+ + + + + | Date | Type | Department | Care Team | Description | +--------+ + + + + | 01/26/ | Hospital | [facility] | | | | 2001 - | Encounter | MED CTR DIETARY | | | | | | [address] | | | | 02/25/ | | [place] [address] | | | | 2001 | | [phone] | | | +--------+ + + + [...]
--- OUTSIDE RECORDS SUMMARY | ~2019-06-30 | XMS | Encounter Summary ---
Demographics + + + | Address | [address] | | | [place] [address] | + + + | Home Phone | | + + + | Preferred Language | Unknown | + + + | Marital Status | | + + + | Scientology Affiliation | Unknown | + + + | Race | Unknown | + + + | Ethnic Group | Unknown | + + + Author + + + | Author | [facility] | | | and [place] | + + + | Organization | [facility] | | [...] Team Providers + +------+ + | Care Therapeutic Riding Instructor Name | Role | Phone | + +------+ + PCP | Unavailable | + +------+ + Encounter Details +--------+ + + + + | Date | Type | Department | Care Team | Description | +--------+ + + + + | 01/26/ | Hospital | [facility] | | | | 2001 - | Encounter | MED CTR DIETARY | | | | | | [address] | | | | 02/25/ | | [place] [address] | | | | 2001 | | [phone] | | | +--------+ + + + [...]
--- OUTSIDE RECORDS SUMMARY | ~2019-06-30 | XMS | Clinical Summary ---
Demographics + + + | Address | [address] | | | [place] [address] | + + + | Home Phone | | + + + | Preferred Language | Unknown | + + + | Marital Status | | + + + | Pentecostalism Affiliation | Unknown | + + + | Race | Unknown | + + + | Ethnic Group | Unknown | + + + Author + + + | Author | [facility] | | | and [place] | + + + | Organization | [facility] | | | [...] Team Providers + +------+ + | Care Toy Painter Name | Role | Phone | + [...] + +--------+ | MEDICARE | MEDICA | [id number] | 04/01/20 | [phone] | | Medica | | | RE | | 15-Pre | 5 | | re | | | PART A | | sent | | | | | | AND B | | | | | | + +--------+ +--------+ + +--------+ | MODA | MODA | [id number] | 08/01/19 | [phone] | [address] | Indemn | | | HEALTH | | 17-Pre | 9 | [address] | ity | | | MDCR | | sent | | [place], | | | | [place] | | | | [place] [address] | | + +--------+ +--------+ + +--------+ [...] | | al/Aamir | | 1950 | [phone] | [place] | | | [place] | | | 5 (Home) | [address] | + +--------+ +--------+ + + Advance Directives + + + + + | Type | Date Recorded | Patient | Explanation | | | | Building Consultant | | + + + + + | Power of | | | | | Correctional Nurse | | | | + + + + + | Advance | | | | | Directive | | | | + + + + +
--- OUTSIDE RECORDS SUMMARY | ~2019-06-30 | XMS | Encounter Summary ---
Demographics + + + | Address | [address] | | | [place] [address] | + + + | Home Phone | | + + + | Preferred Language | Unknown | + + + | Marital Status | | + + + | Rastafari Affiliation | Unknown | + + + | Race | Unknown | + + + | Ethnic Group | Unknown | + + + Author + + + | Author | [facility] | | | and [place] | + + + | Organization | [facility] | | | [...] Team Providers + +------+ + | Care Circuit Clerk Name | Role | Phone | + [...] | 10/13/ | Telephone | [facility] | Yana Magana | Results | | 2017 | | CARE [address] | Jeremy Harper MD | | | | | [place] | [address] | | | | | [address] | [place] | | | | | [phone] | [address] | | | | | | | [...]
--- OUTSIDE RECORDS SUMMARY | ~2019-06-30 | XMS | Encounter Summary ---
Demographics + + + | Address | [address] | | | [place] [address] | + + + | Home Phone | | + + + | Preferred Language | Unknown | + + + | Marital Status | | + + + | Restorationism Affiliation | Unknown | + + + | Race | Unknown | + + + | Ethnic Group | Unknown | + + + Author + + + | Author | [facility] | | | and Flakoana | + + + | Organization | [facility] | | | [...] Team Providers + +------+ + | Care Supervisor Tree [employer] Nut Farming Name | Role | Phone | + [...] + + | 10/10/ | Office | [facility] | Yana Magana | Diarrhea, | | 2018 | Visit | CARE [address] | Jeremy Harper MD | unspecified type | | | | [place] | [address] | (Primary Dx); Nausea | | | | [address] | [place] | | | | | [phone] | [address] | | | | | | | [...] er AG, Qual | | | [facility] | | | | | | MEDICAL [...] ST. | [address] | [place] | [phone] | | [facility] | | [address] | | | - LABORATORY | | [...] [address] | [place] | [phone] | | [facility] | | [address] | | | - LABORATORY | | [...] + | [facility] | [address] | [place] | [phone] | | [facility] | | [address] | | | - LABORATORY | | [...] + | [facility] | [address] | [place], [place] | [phone] | | [facility] | | [address] | | | - LABORATORY | | [...]
--- OUTSIDE RECORDS SUMMARY | ~2019-06-30 | XMS | Encounter Summary ---
Demographics + + + | Address | [address] | | | [place] [address] | + + + | Home Phone | | + + + | Preferred Language | Unknown | + + + | Marital Status | | + + + | Yazidism Affiliation | Unknown | + + + [...] Team Providers + +------+ + | Care Skoog Machine Operator Name | Role | Phone | + [...] + + | 10/10/ | Office | [facility] | Yana Magana | Diarrhea, | | 2018 | Visit | CARE [address] | Jeremy Harper MD | unspecified type | | | | [place] | [address] | (Primary Dx); Nausea | | | | [address] | [place] | | | | | [phone] | [address] | | | | | | | [...] er AG, Qual | | | [facility] | | | | | | [address] | [place] | [phone] | | [facility] | | [address] | | | - LABORATORY | | [...] [address] | [place] | [phone] | | [facility] | | [address] | | | - LABORATORY | | [...] + | [facility] | [address] | [place] | [phone] | | [facility] | | [address] | | | - LABORATORY | | [...] + | [facility] | [address] | [place], [place] | [phone] | | [facility] | | [address] | | | - LABORATORY | | [...]
--- OUTSIDE RECORDS SUMMARY | ~2019-06-30 | XMS | Encounter Summary ---
Demographics + + + | Address | [address] | | | [place] [address] | + + + | Home Phone | | + + + | Preferred Language | Unknown | + + + | Marital Status | | + + + | Buddhist Affiliation | Unknown | + + + | Race | Unknown | + + + | Ethnic Group | Unknown | + + + Author + + + | Author | [facility] | | | and Flakoana | + + + | Organization | [facility] | [...] Team Providers + +------+ + | Care End Finder Forming Department Name | Role | Phone | + +------+ + PCP | Unavailable | + +------+ + Encounter Details +--------+ + + + + | Date | Type | Department | Care Team | Description | +--------+ + + + + | 01/25/ | Hospital | [facility] | | | | 2006 | Encounter | [facility] | | | | | | [address] | | | | | | [place] | | | | | | [address] | | | | | | [phone] | | | +--------+ + + + [...]
--- OUTSIDE RECORDS SUMMARY | ~2019-06-30 | XMS | Encounter Summary ---
Demographics + + + | Address | [address] | | | [place] [address] | + + + | Home Phone | | + + + | Preferred Language | Unknown | + + + | Marital Status | | + + + | Anglican Affiliation | Unknown | + + + | Race | Unknown | + + + | Ethnic Group | Unknown | + + + Author + + + | Author | [facility] | | | and Flakoana | + + + | Organization | [facility] | | | [...] Team Providers + +------+ + | Care Unarmed Security Officer Name | Role | Phone | + +------+ + PCP | Unavailable | + +------+ + Encounter Details +--------+ + + + + | Date | Type | Department | Care Team | Description | +--------+ + + + + | 04/11/ | Hospital | [facility] | | | | 2001 | Encounter | [facility] GENER[facility] OP | | | | | | CONV DEPT [address] | | | | | [place], | | | | | | [place] [address] | | | | | | [phone] | | | +--------+ + + + [...]
[~2019-06-30 22:26] MED LIST changes: +MACROBID 100 M100 MG PO; +NORCO 5-325 TA1 EACH PO
--- OUTSIDE RECORDS SUMMARY | 2019-06-30 22:30 | XMS ---
PreManage Notification: JORGE MONGE Security Senior Credit Officer Events No recent Security Events currently on file CRITERIA MET - [facility] - 2 Visits in 30 Days CARE PROVIDERS Clarence Onitveros MD PHONE: Unknown Maria Luisa has no Care Guidelines for this patient. ESudeep VISIT COUNT (12 MO.) 2 [facility] TOTAL 2 NOTE: Visits indicate total known visits. 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
[2019-07-01] MEDS ORDERED: BACTRIM DS TAB1 EACH PO (05:29)
[2019-07-01] MEDS ORDERED: PERCOCET 5-3251 EACH PO (05:29)
[2019-07-01] MEDS ORDERED: ONDANSETRON ODT4 MG SL (05:29)
== END 2019-07-01 06:01 | disposition home or self-care (01) ==
LOC: ED 22:26
DX: S22.42XA Multiple fractures of ribs, left side, initial encounter for closed fracture (principal); I10 Essential (primary) hypertension; E11.9 Type 2 diabetes mellitus without complications; Z88.0 Allergy status to penicillin; Z79.899 Other long term (current) drug therapy; Z79.82 Long term (current) use of aspirin; Z79.4 Long term (current) use of insulin; W22.8XXA Striking against or struck by other objects, initial encounter
CPT/HCPCS: 71250; 74177; 80053; 83690; 85025; 96361; 99285-25; J2270; J2405; J7030; Q9967

== ENCOUNTER 2021-08-27 05:55 | Day surgery (SDC) | payer MEDICARE, OTHER ==
[~2021-08-27] VITALS: Ht 162.6 cm; Wt 81.8 kg
[~2021-08-27 05:55] MED LIST changes: +BACTRIM DS TAB1 EACH PO; +IRON325 M1 PO; +LYSINE1000 MG PO; +ONDANSETRON ODT4 MG SL; +PEPCID20 MG PO; +PERCOCET 5-3251 EACH PO; +VITAMIN C500 M5 PO
--- NOTE | 2021-08-27 08:14 | NUR ---
08/27/21 0814 Caryn Domingo 0812 PATIENT ARRIVES TO PACU UNRESPONSIVE TO PAIN, ORAL AIRWAY IN PLACE. RESP EVEN AND UNLABORED, MASK AT 10 LITERS.
--- NOTE | 2021-08-27 08:54 | NUR ---
PT EATING CRACKERS AND PUDDING AND DRINKING WATER TOLERATES WELL. WARM BLACKETS GIVEN. CALL LIGHT WITHIN REACH
--- NOTE | 2021-08-27 10:16 | NUR ---
0935 PT UP TO THE BATHROOM WITH MINIMAL ASSIST. PT WAS ABLE TO VOID 500ML OF LIGHTLY BLOOD TINGED URINE, THERE IS A SMALL BLOOD STREEK ON JELLY PAD. PT ASKED IF SHE COULD GET DRESSED AND GET READY TO GO HOME
--- NOTE | 2021-08-27 10:23 | NUR ---
0945 DISCHARGE INSRTUCTIONS GIVEN TO PT, HER DAUGHTER CALLED STATING THAT SHE HAS BEEN WAITING OUTSIDE FOR 1 HOUR, PT IN A HURRY TO GET OUT TO DAUGHTER AND DID NOT GET SIGNITURE PAGE SIGNED BY PT. PT VOICED UNDERSTANDING OF DISCHARGE INSTRUCTIONS. STILL ONLY A SMALL STREEK OF BLOOD ON JELLY PAD WHEN PT LEFT DEPT.
--- NOTE | 2021-08-27 10:29 | NUR ---
6565 PT DENIES NAUSEA AND DENIES PAIN, PT WHEELED OUT BY TO DAUGHTERS CAR BY RN
--- NOTE | 2021-08-27 10:48 | NUR ---
PT ALERT, ORIENTED AND SEEMS RELAXED. ALL QUESTIONS ASKED ANSWERED. PT DID REQUEST PRAYER. DAUGHTER WILL PICKUP FOLLOWING DC. WILL FOLLOW
--- NOTE | 2021-08-28 13:22 | PATH ---
[facility] [address] [place], [place] [address] Signed SPECIMEN(S): A ENDOMETRIAL MASS SPECIMEN(S): B ENDOMETRIAL CURETTINGS SPECIMEN(S): C ENDOCERVICAL CURETTINGS SPECIMEN SOURCE: A. ENDOMETRIAL MASS B. ENDOMETRIAL CURETTINGS C. ENDOCERVICAL CURETTINGS CLINICAL HISTORY: Hysteroscopy DC. Adnexal mass, mass of uterine cervix, mass of uterus. FINAL PATHOLOGIC DIAGNOSIS: A. Endometrial mass, excision: - Fragments of benign endometrial polyp(s). - Fragments of myometrium with features suggestive of adenomyosis, see Comment. - Negative for atypical hyperplasia or malignancy. B. Endometrium, curettage: - Inactive endometrium. - Minute fragment of benign endometrial polyp. - Fragments of myometrium with features suggestive of adenomyosis, see Comment. - Negative for hyperplasia or malignancy. C. Endocervix, curettage: - Fragments of benign endocervical/endometrial polyp(s). - Fragments of squamous mucosa with no histopathologic abnormality. COMMENT: Regarding specimens A and B: Fragments of the myometrium demonstrate intermixed endometrial glands and stroma. This could represent adenomyosis, but interpretation is complicated by tangential nature of the fragment. NAL:cml:C2NR MICROSCOPIC EXAMINATION: Histologic sections of all submitted blocks are examined by light microscopy. These findings, together with the gross examination, support the pathologic diagnosis. GROSS DESCRIPTION: PATIENT NAME: JORGE MONGE PATHOLOGY DATE OF : 46 REPORT #: [id number] PHYSICIAN: CHIKI PATHOLOGY PCP: GISELE ANDREW REPORT IS CONFIDENTIAL AND NOT TO BE RELEASED WITHOUT AUTHORIZATION [facility] [address] [place], [place] [address] Signed Three specimens are received in three containers, labeled "SW." A. The specimen, labeled "SW, A," and designated on the requisition "endometrial mass," is received in formalin and consists of reyna soft tissue fragments measuring 2.7 x 1.9 x 0.4 cm in aggregate. Specimen is filtered and entirely submitted in cassette (A1). B. The specimen, labeled "SW, B," and designated on the requisition "endometrial curettings," is received in formalin and consists of reyna soft tissue fragments and mucus measuring 2.5 x 1.2 x 0.4 cm in aggregate. Specimen is filtered and entirely submitted in cassette (B1). C. The specimen, labeled "SW, C," and designated on the requisition "endocervical curettings," is received in formalin and consists of reyna soft tissue fragments and mucus measuring 2.6 x 1.8 x 0.4 cm in aggregate. Specimen is filtered and entirely submitted in cassette (C1). AT (under the direct supervision of a pathologist) The Gross Description was prepared using a voice recognition system. The report was reviewed for accuracy; however, sound-alike word errors, addition and/or deletions may occur. If there is any question about this report, please contact Client Services. PERFORMING LABORATORY: The technical component was performed by [facility], [address] [place] [address] (Toy Consultant: Zaria Mustafa MD; CLIA# [id number]). [facility], [address] [facility], [address] [address] (IA# [id number]). Diagnostician: Nolvia Mayo MD Pathologist Electronically Signed 08/28/2021 Copies: ~ PATIENT NAME: JORGE MONGE PATHOLOGY DATE OF : 46 REPORT #: [id number] PHYSICIAN: CHIKI PATHOLOGY PCP: GISELE ANDREW REPORT IS CONFIDENTIAL AND NOT TO BE RELEASED WITHOUT AUTHORIZATION
--- NOTE | 2021-08-30 15:10 | OR ---
[facility] [address] [place] [address] Signed DATE OF OPERATION: 08/27/2021 SURGEON: Mariel Arreaga DO PREOPERATIVE DIAGNOSES: Electronically Signed By: MARIEL ARREAGA DO 08/30/21 1510 PATIENT NAME: JORGE MONGE OPERATIVE REPORT DATE OF : 46 REPORT #: [id number] PHYSICIAN: MARIEL ARREAGA DO PCP: GISELE ANDREW-Mine REPORT IS CONFIDENTIAL AND NOT TO BE RELEASED WITHOUT AUTHORIZATION [address] [place] [address] Signed Endometrial mass, cervical mass on ultrasound, adnexal mass on ultrasound. POSTOPERATIVE DIAGNOSES: Endometrial mass, cervical mass on ultrasound, adnexal mass on ultrasound, in addition, stage II cystocele, stage III rectocele. PROCEDURE PERFORMED: Hysteroscopy, D and C. BLOOD LOSS: 15 mL. FINDINGS: Normal-appearing endocervical canal. Endometrium with a sessile polypoid lesion on anterior lower uterine segment, possibly containing fatty deposits vs calcifications , otherwise atrophic endometrium. Bilateral tubal ostia visualized. INDICATION: The patient is a 71-year-old female with prior history of numerous pelvic masses including an endometrial mass, an endocervical mass and an adnexal mass which have been followed with serial imaging, now most recently with conflicting imaging report. As we discuss definitive operative management of the adnexal mass and possible surgical management of uterine and cervical masses, tissue sampling was needed for better characterization of the above-mentioned masses. Risks, benefits, and alternatives to hysteroscopy, D and C with endometrial biopsy and curettings and cervical mass biopsy were discussed with the patient and she elected to proceed. DESCRIPTION OF PROCEDURE: The patient was taken to the operating room where she was placed under general anesthesia and positioned in dorsal lithotomy. She was prepped and draped in normal sterile fashion. Weighted speculum was placed in the vagina. Anterior lip of the cervix was grasped with an Allis clamp and the cervix was easily sequentially dilated with Hegar dilators to accommodate a 6 mm scope. The scope was then introduced using sterile saline as a distending media with AquaLux system. Cervix and endometrium were surveyed with findings as noted above. MyoSure Lite device was brought in and used to initially perform polypectomy. Endometrial curettage was performed also with MyoSure Lite and collected as a separate sample. Endometrium was noted to be appropriately atrophic, Electronically Signed By: MARIEL ARREAGA DO 08/30/21 1510 PATIENT NAME: JORGE MONGE OPERATIVE REPORT DATE OF : 46 REPORT #: [id number] PHYSICIAN: MARIEL ARREAGA DO PCP: GISELE ANDREW FEEDER ASSOCIATE-Mine REPORT IS CONFIDENTIAL AND NOT TO BE RELEASED WITHOUT AUTHORIZATION [facility] [address] [address] Signed consistent with the patient's postmenopausal status. Endocervical curettage was then performed with MyoSure Lite in absence of discrete endocervical mass. All instrumentation was removed. Fluid deficit of sterile saline was noted to be 360 mL. Excellent hemostasis was noted. Sponge and instrument counts were correct. The patient was taken to recovery in stable and satisfactory condition with plans for postop follow up next week to review biopsy results and plan for moving forward. Mariel Arreaga DO EMZ/MODL /[id number] Copies: ~ Electronically Signed By: MARIEL ARREAGA DO 08/30/21 1510 PATIENT NAME: JORGE MONGE OPERATIVE REPORT DATE OF : 46 REPORT #: [id number] PHYSICIAN: MARIEL ARREAGA DO PCP: GISELE ANDREW FEEDER ASSOCIATE-Mine REPORT IS CONFIDENTIAL AND NOT TO BE RELEASED WITHOUT AUTHORIZATION
== END 2021-08-27 09:50 | disposition home or self-care (01) ==
LOC: OPS 05:55 → DS 05:55 → OPS 06:45 → DS 06:45 → OPS 09:50
PROVIDERS: ATTEND Obstetrics & Gynecology
PROC: 0UDB8ZX Extraction of Endometrium, Via Natural or Artificial Opening Endoscopic, Diagnostic (ICD-10-PCS; principal; 2021-08-27 06:45)
DX: N84.0 Polyp of corpus uteri (principal); N81.10 Cystocele, unspecified; N81.6 Rectocele; E11.9 Type 2 diabetes mellitus without complications; I10 Essential (primary) hypertension; K21.9 Gastro-esophageal reflux disease without esophagitis; E78.00 Pure hypercholesterolemia, unspecified; Z79.899 Other long term (current) drug therapy; Z79.4 Long term (current) use of insulin
CPT/HCPCS: 00952; 86850; 86900; 86901; J1100; J1885; J2250; J2405; J2704; J2765; J3010; J7121

== ENCOUNTER 2024-05-16 06:00 | Day surgery (SDC) | payer MEDICARE, OTHER ==
[2024-05-08 11:42] VITALS: BP 136/75
[~2024-05-16] VITALS: Ht 162.6 cm; Wt 80.5 kg
[~2024-05-16 06:00] MED LIST changes: +TYLENOL325 MG PO
[2024-05-16 06:13] VITALS: BP 165/60
[2024-05-16] MEDS ORDERED: propofoL 200 MG/20 ML VIAL ONE (06:42)
[2024-05-16] MEDS ORDERED: LACTATED RINGER'S 1,000 ML IV SCH (07:00)
[2024-05-16] MEDS ORDERED: LIDOCAINE HCL 1% 5 ML SDV INJ ONE (07:00)
[2024-05-16] MEDS ORDERED: IBLOOD GLUCOSE TEST STRIP 1 EA TEST VI PRN (07:00)
--- NOTE | 2024-05-16 07:26 | NUR ---
VISITED DURING SPIRITUAL CARE ROUNDS. PT IN OVERALL GOOD SPIRITS, NO IMMEDIATE NEEDS. TRANSMISSION REPAIRER PROVIDED SUPPORTIVE PRESENCE, HOSPITALITY, PRAYER. PT EXPRESSED GRATITUDE.
[2024-05-16 08:47] VITALS: BP 131/66
--- NOTE | 2024-05-16 09:11 | NUR ---
05/16/24 0911 Maria Grubbs 0808- PT ARRIVES TO THE PACU WITH ORAL AIRWAY IN PLACE AND MASK IN PLACE WITH 10L O2. IV IN R HAND INFUSING LR. PT IS IN LEFT LATERAL POSITION AND ABDOMEN IS SOFT AND NON DISTENDED. PT IS NOT REACTIVE WITH VERBAL AND TACTILE STIMULI. ALL MONITORS IN PLACE. 0811- PT O2 SAT AT 100%. O2 TURNED DOWN TO 6L. 0823- PT PASSING GAS OFF AND ON. 0825- PT STARTS REACHING FOR ORAL AIRWAY. ORAL AIRWAY REMOVED AFTER PT WAS ABLE TO FOLLOW COMMANDS AND OPEN MOUTH. PT TALKING WITH RN. PT REFUSES PAIN AND NAUSEA. 0832- PT ENCOURAGED TO PASS GAS TO AVOID ABDOMINAL PAIN. 0835- PT STATES THAT SHE IS THIRSTY. PT HOB INCREASED AND PT SIPPING ON ICED WATER. PT TOLERATING WELL. 0840- DC INSTRUCTIONS GIVEN. NO QUESTIONS OR CONCERNS AT THIS TIME. 0850-ALL MONITORS REMOVED. AND IV REMOVED. PT SITTING AT SIDE OF BED. PT REPORTS NO PAIN OR NAUSEA WITH MOVEMENT. PT GETTING DRESSED INDEPENDENTLY WITH NO ISSUES. 0855- PT AMBULATES TO WHEELCHAIR INDEPENDENTLY WITH GAIT STEADY AND EVEN. NO QUESTIONS OR CONCERNS. ALL BELONGINGS WITH PT.
--- NOTE | 2024-05-16 10:15 | OR ---
[facility] [address] [place], [place] [address] Signed DATE OF OPERATION: 05/16/2024 SURGEON: Eddi Carrington MD PREOPERATIVE DIAGNOSES: 1. Twin brothers with colonic polyps. 2. Mother with colon cancer at age 87. 3. Diverticulosis. 4. Fecal soilage. POSTOPERATIVE DIAGNOSES: 1. Moderate sigmoid diverticulosis. 2. 5 mm polyp at hepatic flexure. PROCEDURE: Colonoscopy with hot biopsy. ESTIMATED BLOOD LOSS: None. INDICATIONS: Kaylyn is a 74-year-old obese diabetic female, asked to see me for a followup colonoscopy. She describes a colonoscopy in her 50s. She believes this was negative. I helped her with a colonoscopy 13 years ago at the age of 61 in 2011. At that time, we knew her twin brothers both had colonic polyps removed. Her mother had developed colon cancer at age 87. Kaylyn had some diverticulosis at that time. We asked her to stay on the five year plan due to her family history. She tells me to her memory, she has only had two colonoscopies in her life. She has no lower GI complaints specifically, other than a little fecal soilage as she has gotten older. She understands this is quite common. In the office, I gave her a pamphlet on colonoscopy. We had reviewed the nature of the test. There is risk including, but not limited to gas bloating, crampy abdominal pain, bleeding, perforation requiring surgery and missed diagnosis. We also reviewed the written instructions for the bowel prep line by line. It is the same prep she took 13 years ago. She also understands the need for monitored anesthesia care given her advanced age, her significantly decreased functional status, diabetes, full round flat face, heavy chest and abdomen. In that regard, she did receive preoperative blood work and an EKG. She understands an adult person has to take her home afterwards. She had expressed understanding and wished to proceed. PROCEDURE IN DETAIL: Electronically Signed By: EDDI CARRINGTON MD 05/16/24 1015 PATIENT NAME: KAYLYN MONGE OPERATIVE REPORT DATE OF : 46 REPORT #: [id number] PHYSICIAN: EDDI CARRINGTON MD PCP: TOMEKA NUGENT PAC REPORT IS CONFIDENTIAL AND NOT TO BE RELEASED WITHOUT AUTHORIZATION [facility] [address] [place], [place] [address] Signed Kaylyn was taken into our endoscopy suite and placed in the left lateral decubitus position. She was given monitored anesthesia care with propofol infusion per our nurse clockmaker apprentice. A digital rectal exam was performed. There were no external hemorrhoids. There were no masses. She had moderate sphincter tone but that is common after propofol infusion. The adult colonoscope was introduced and advanced under direct visualization of the camera. It took a little while to get through the sigmoid colon and finally down into the cecum itself. We needed some abdominal compression and just a little extra propofol to make it into the cecum itself. Her prep was good. There were a few areas that I had to irrigate and suction out. We could easily see the appendiceal orifice and the ileocecal valve. The scope was then slowly withdrawn. We found a 5 mm sessile polyp in the hepatic flexure. It was removed with the help of hot biopsy forceps. She does have diverticula in the sigmoid colon. They are moderate in size, moderate in number, and scattered about. Once in the rectum, the scope was retroflexed. I did not see any additional pathology above the anal canal. After this, the gas was suctioned out and the colonoscope removed. Kaylyn tolerated the procedure quite well. RECOMMENDATIONS: I will see Kaylyn back in my office in 7 to 14 days to review her results. She should consider staying on the five year plan given her family history, particularly her mother. Eddi Carrington MD ALB/MODL /[id number] cc: DELORES Lo MD Copies: EDDI CARRINGTON MD ~ Electronically Signed By: EDDI CARRINGTON MD 05/16/24 1015 PATIENT NAME: KAYLYN MONGE OPERATIVE REPORT DATE OF : 46 REPORT #: [id number] PHYSICIAN: EDDI CARRINGTON MD PCP: TOMEKA NUGENT PAC REPORT IS CONFIDENTIAL AND NOT TO BE RELEASED WITHOUT AUTHORIZATION
--- NOTE | 2024-05-21 17:22 | PATH ---
[facility] [address] [place], [place] [address] Signed SPECIMEN(S): A HEPATIC FLEXURE COLON POLYPS SPECIMEN SOURCE: A. HEPATIC FLEXURE COLON POLYPS CLINICAL HISTORY: Colon polyps, diverticulosis, family history of colon cancer. Postop: Colon polyps, diverticulosis. FINAL PATHOLOGIC DIAGNOSIS: Hepatic flexure colon polyps: - Hyperplastic polyps (two fragments). JVR:clv MICROSCOPIC EXAMINATION: Histologic sections of all submitted blocks are examined by light microscopy. These findings, together with the gross examination, support the pathologic diagnosis. GROSS DESCRIPTION: The specimen, labeled and designated "Celi, hepatic flexure polyps," is received in formalin and consists of two reyna soft tissue fragments, ranging from 0.1 to 0.2 cm. Entirely submitted in (A1). JS (under the direct supervision of a pathologist) The Gross Description was prepared using a voice recognition system. The report was reviewed for accuracy; however, sound-alike word errors, addition and/or deletions may occur. If there is any question about this report, please contact Client Services. PERFORMING LABORATORY: Technical component was performed by [facility], [address] [place] [id number] (CLIA# [id number]). Professional interpretation was performed by [facility], [address] [place] [id number] (CLIA#: [id number]). Diagnostician: Riaz Dc MD Pathologist Electronically Signed 05/21/2024 Copies: PATIENT NAME: JORGE MONGE PATHOLOGY DATE OF : 46 REPORT #: [id number] PHYSICIAN: CHIKI PATHOLOGY PCP: TOMEKA NUGENT PAC REPORT IS CONFIDENTIAL AND NOT TO BE RELEASED WITHOUT AUTHORIZATION [address] [address] Signed ~ PATIENT NAME: JORGE MONGE PATHOLOGY DATE OF : 46 REPORT #: [id number] PHYSICIAN: CHIKI PATHOLOGY PCP: TOMEKA NUGENT PAC REPORT IS CONFIDENTIAL AND NOT TO BE RELEASED WITHOUT AUTHORIZATION
== END 2024-05-16 08:55 | disposition home or self-care (01) ==
LOC: DS 06:00
PROVIDERS: ATTEND Colon & Rectal Surgery
PROC: 0DBL8ZX Excision of Transverse Colon, Via Natural or Artificial Opening Endoscopic, Diagnostic (ICD-10-PCS; principal; 2024-05-16 07:30)
DX: Z12.11 Encounter for screening for malignant neoplasm of colon (principal); K63.5 Polyp of colon; K57.30 Diverticulosis of large intestine without perforation or abscess without bleeding; K21.9 Gastro-esophageal reflux disease without esophagitis; I10 Essential (primary) hypertension; E11.9 Type 2 diabetes mellitus without complications; E78.00 Pure hypercholesterolemia, unspecified; D64.9 Anemia, unspecified; E66.9 Obesity, unspecified; Z68.31 Body mass index [BMI] 31.0-31.9, adult; Z79.4 Long term (current) use of insulin; Z79.84 Long term (current) use of oral hypoglycemic drugs; Z79.899 Other long term (current) drug therapy; Z88.0 Allergy status to penicillin; Z80.0 Family history of malignant neoplasm of digestive organs; Z83.719 Family history of colon polyps, unspecified
CPT/HCPCS: 00811; 88305; J2704; J7121

== ENCOUNTER 2024-06-09 20:54 | Emergency (ER) | payer MEDICARE, OTHER ==
[~2024-06-09] VITALS: Ht 162.6 cm; Wt 81.2 kg
[2024-06-09] MEDS ORDERED: IBUPROFEN 600 MG TAB PO ONE (22:15)
[2024-06-09] MEDS ORDERED: FLUTICASONE PROPIONATE 50 MCG BTL NAS ONE (22:30)
[2024-06-09 22:54] LABS: INFLUENZA B NAA NEGATIVE (NEGATIVE); RESPIRATORY SYNCYTIAL VIR NAA NEGATIVE (NEGATIVE)
[2024-06-09 23:06] VITALS: BP 185/71
== END 2024-06-09 23:07 | disposition home or self-care (01) ==
LOC: ED 20:54
PROVIDERS: Internal Medicine
DX: H69.91 Unspecified Eustachian tube disorder, right ear (principal); I10 Essential (primary) hypertension; E11.9 Type 2 diabetes mellitus without complications; Z88.0 Allergy status to penicillin; Z79.84 Long term (current) use of oral hypoglycemic drugs; Z79.82 Long term (current) use of aspirin; Z79.899 Other long term (current) drug therapy; Z11.52 Encounter for screening for COVID-19
CPT/HCPCS: 87502; 99283; A9270; U0002

== ENCOUNTER 2025-02-14 10:29 | Emergency (ER) | payer MEDICARE, OTHER ==
[~2025-02-14] VITALS: Ht 162.6 cm; Wt 83.4 kg
[2025-02-14] MEDS ORDERED: OXYCODONE HCL 5 MG TAB PO ONE (10:45)
[2025-02-14] MEDS ORDERED: ONDANSETRON 4 MG TAB ODT SL ONE (10:45)
[2025-02-14] MEDS ORDERED: PERCOCET 5-3251 EACH PO (12:54)
[2025-02-14] MEDS ORDERED: ONDANSETRON ODT4 MG PO (12:54)
[2025-02-14 13:10] VITALS: BP 127/64
== END 2025-02-14 13:10 | disposition home or self-care (01) ==
LOC: ED 10:29
DX: S42.201A Unspecified fracture of upper end of right humerus, initial encounter for closed fracture (principal); I10 Essential (primary) hypertension; E11.9 Type 2 diabetes mellitus without complications; Z88.0 Allergy status to penicillin; Z79.899 Other long term (current) drug therapy; Z79.84 Long term (current) use of oral hypoglycemic drugs; Z79.82 Long term (current) use of aspirin; W18.30XA Fall on same level, unspecified, initial encounter
CPT/HCPCS: 29105; 73060; 99283-25; A9270

== ENCOUNTER 2025-02-25 17:31 | Inpatient (IN) | payer MEDICARE, OTHER ==
[~2025-02-25] VITALS: Ht 162.6 cm; Wt 78.7 kg
[~2025-02-25 17:31] MED LIST changes: -ASPIRIN EC81 MG; -LANTUS SOL100 UNIT/1; +LANTUS SOL100 UNIT/1 SUB-Q; +LO-DOSE ASPIRIN81 MG PO; +ONDANSETRON ODT4 MG PO; -PRAVACHOL20 MG PO; +PRAVASTATIN SOD20 MG PO
--- OUTSIDE RECORDS SUMMARY | 2025-02-25 17:38 | XMS ---
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 Brianna VISIT COUNT (12 MO.) [address] [place] [address] TOTAL 3 NOTE: Visits indicate total known visits. ED/UCC VISIT TRACKING (12 MO.) 02/25/2025 17:32 [facility] TYPE: Emergency COMPLAINT: - BLOOD WORK ISSUE 02/14/2025 10:30 [facility] TYPE: Emergency COMPLAINT: - FALL DIAGNOSES: - Allergy status to penicillin - Essential (primary) hypertension - Fall on same level, unspecified, initial encounter - ocean transportation intermediary (current) use of aspirin - MCFP (current) use of oral hypoglycemic drugs - Other intermodal owner operator truck driver (current) drug therapy - Pain in right arm - Type 2 diabetes mellitus without complications - Unspecified fracture of upper end of right humerus, initial encounter for closed fracture 06/09/2024 20:[address] [facility] [place] TYPE: Emergency COMPLAINT: - EAR ACHE DIAGNOSES: - Allergy status to penicillin - Cough, unspecified - Encounter for screening for COVID-19 - Essential (primary) hypertension - MCFP (current) use of aspirin - [facility]FP (current) use of oral hypoglycemic drugs - Nasal congestion - Otalgia, right ear - Other custodial (current) drug therapy - Other specified symptoms and signs involving the circulatory and respiratory systems - Type 2 diabetes mellitus without complications - Unspecified Eustachian tube disorder, right ear INPATIENT VISIT TRACKING (12 MO.) No inpatient visits to display in this time frame [email or web address]
[2025-02-25] MEDS ORDERED: AMLODIPINE BESYL5 MG PO (17:50)
[2025-02-25 18:25] LABS: BASOPHILS 0.7 % (0.1-1.2); EOSINOPHILS 1.9 % (0.7-5.8); LYMPHOCYTES 16.2 % (19.3-51.7); MCH 27.8 PG (25.6-32.2); MCHC 34.0 g/dL (32.2-35.5); MCV 81.9 fL (79.4-94.8); MONOCYTES 7.9 % (4.7-12.5); NEUTROPHILS 72.6 % (34.0-71.1); RBC 3.81 M/uL (3.93-5.22)
[2025-02-25] MEDS ORDERED: SODIUM CHLORIDE 0.9% 1,000 ML IV ONE (18:30)
[2025-02-25 18:41] LABS: ALT (SGPT) 17.0 U/L (14-59); AST (SGOT) 12.0 U/L (15-37); GLOMERULAR FILTRATION RATE,EST 20.0 mL/min (>60); PROTEIN, TOTAL 6.4 g/dL (6.4-8.2); UREA NITROGEN 63.0 mg/dL (7-18)
[2025-02-25] MEDS ORDERED: MAGNESIUM SULFATE 2 GM/50 ML BAG IV ONE (19:15)
[2025-02-25] MEDS ORDERED: ACETAMINOPHEN 325 MG TAB PO PRN (19:45)
[2025-02-25] MEDS ORDERED: GLUCAGON,HUMAN RECOMBINANT 1 MG/ML VIAL SUB-Q PRN (19:45)
[2025-02-25] MEDS ORDERED: LACTATED RINGER'S 1,000 ML IV SCH (19:45)
[2025-02-25] MEDS ORDERED: OXYCODONE HCL 5 MG TAB PO PRN (19:45)
[2025-02-25] MEDS ORDERED: DEXTROSE 50% 50 ML SYR IV PRN ×2 (19:45)
[2025-02-25] MEDS ORDERED: DEXTROSE 5% 1,000 ML IV PRN (19:45)
[2025-02-25] MEDS ORDERED: IBLOOD GLUCOSE TEST STRIP 1 EA TEST XX PRN (19:45)
[2025-02-25] MEDS ORDERED: POTASSIUM BICARBONATE/CIT AC 20 MEQ TABEF PO ONE (20:00)
[2025-02-25] MEDS ORDERED: LABETALOL HCL 20 MG/4 ML VIAL IV PRN (20:15)
[2025-02-25 20:22] VITALS: BP 138/50
[2025-02-25 21:00] VITALS: BP 138/50
[2025-02-25] MEDS ORDERED: IBLOOD GLUCOSE TEST STRIP 1 EA TEST VI SCH (21:00)
[2025-02-25] MEDS ORDERED: HEParin SOD (PORCINE) 5,000 UNIT/ML SDV SUB-Q SCH (21:00)
[2025-02-25] MEDS ORDERED: INSULIN LISPRO 100 UNIT/ML ML SUB-Q SCH (21:00)
[2025-02-25] MEDS ORDERED: MELATONIN 3 MG TAB PO PRN (21:00)
--- NOTE | 2025-02-25 21:00 | NUR ---
ASSESSMENT AND VITAL SIGNS DONE. pt ARRIVED TO THE FLOOR VIA STRETCHER. pt ABLE TO WALK TO THE BR TO USE THE TOILET. WATER REFRESHED. ADMISSION DONE. BG CHECKED WITH A RESULTS OF 116 NO SS INSULIN NEEDS AT THIS TIME. IVF INFUSING PER ORDER. pt DENIES ANY OTHER NEEDS AT THIS TIME. CALL LIGHT WITH REACH. pt RIGHT ARM IN BRACE.
[2025-02-25 21:48] LABS: BLOOD/HGB, URINE NEGATIVE (Negative); KETONE, URINE NEGATIVE (Negative); LEUK ESTERASE, URINE MODERATE (negative); NITRITE, URINE NEGATIVE (negative)
[2025-02-25 21:55] LABS: BACTERIA, URINE RARE /hpf (negative); CASTS, URINE NONE SEEN \\lpf; CRYSTALS, URINE NONE SEEN (0-1+); EPITHELIAL CELLS, URINE SQUAMOUS 1+ /lpf (0-1+); REFLEX CULTURE, URINE Yes (No)
--- NOTE | 2025-02-25 22:50 | NUR ---
DAUGHTER ABOUT TO LEAVE AND STOP BY THE NURSE'S STATION THAT PATIENT WANTS TO USE THE TOILET. THIS JUDO TEACHER IN TO THE ROOM. SBA. PATIENT UP TO THE RESTROOM. PATIENT VOIDED 300ML YELLOW URINE AND HAD LOOSE BM. PATIENT DID SELF JELLY CARE AND WASHED HAND. PATIENT IS BACK IN BED. NO FURTHER NEEDS AT THIS TIME CALL LIGHT AND SIDE TABLE IN REACH.
[2025-02-26] VITALS (11 sets, daily range): BP systolic 107–144; BP diastolic 42–66
--- NOTE | 2025-02-26 00:27 | NUR ---
PATIENT CALLED. UP TO THE BATHROOM SBA TO VOID 200ML AND LOOSE BM. PATIENT IS BACK IN BED. ICE WATER REFILLED. NO OTHER NEEDS AT THIS TIME.
--- NOTE | 2025-02-26 01:30 | NUR ---
IN RM TO DO pt VITAL SIGNS. IV INFUSING PER ORDER. pt DENIES ANY OTHER NEEDS AT THIS TIME. CALL LIGHT WITHIN REACH.
--- NOTE | 2025-02-26 01:52 | NUR ---
THIS RN CALL MD DUE TO pt BP BEING LOW AND LOW URINE URINE OUTPUT. NEW ORDER GIVEN AND VERIFIED WITH REPEAT BACK METHOD. pt DENIES ANY OTHER NEEDS AT THIS TIME. CALL LIGHT WITHIN REACH.
--- NOTE | 2025-02-26 03:33 | NUR ---
pt RESTING IN THE BED WITH EYES CLOSED. RR EVEN AND UNLABORED. CALL LIGHT WITHIN REACH.
--- NOTE | 2025-02-26 04:47 | NUR ---
pt RESTING IN THE BED WITH EYES CLOSED. RR EVEN AND UNLABORED. CALL LIGHT WITHIN REACH.
[2025-02-26 05:35] LABS: BASOPHILS 0.9 % (0.1-1.2); EOSINOPHILS 4.4 % (0.7-5.8); LYMPHOCYTES 19.5 % (19.3-51.7); MCH 28.0 PG (25.6-32.2); MCHC 34.5 g/dL (32.2-35.5); MCV 81.2 fL (79.4-94.8); MONOCYTES 9.5 % (4.7-12.5); NEUTROPHILS 65.2 % (34.0-71.1); RBC 3.46 M/uL (3.93-5.22)
[2025-02-26 05:52] LABS: GLOMERULAR FILTRATION RATE,EST 24.0 mL/min (>60); PHOSPHORUS, INORGANIC 3.7 mg/dL (2.5-4.9); UREA NITROGEN 53.0 mg/dL (7-18)
--- NOTE | 2025-02-26 06:00 | NUR ---
VITAL SIGNS DONE AND FOCUSSED ASSESSMENT DONE. pt UP TO THE BR. SBA FOR LINE/TUBE MANAGEMENT. pt DENIES ANY OTHER NEEDS AT THIS TIME. CALL LIGHT WITHIN REACH.
--- NOTE | 2025-02-26 07:04 | NUR ---
VERBAL REPORT RECEIVED FROM DARÍO DURBIN. PT RESTS IN BED, EYES CLOSED, RESP EVEN AND UNLABORED.
--- NOTE | 2025-02-26 07:20 | NUR ---
VERBAL REPORT RECEIVED FROM DARÍO DURBIN. PT RESTS IN BED AWAKE AND ALERT, WATCHES TV, ICE WATER PROVIDED PER PT REQUEST.
[2025-02-26] MEDS ORDERED: OXYCODONE-ACET1 EAC1 PO (08:05)
[2025-02-26] MEDS ORDERED: FUROSEMIDE20 MG PO (08:11)
[2025-02-26] MEDS ORDERED: ENALAPRIL MALEA20 MG PO (08:17)
[2025-02-26] MEDS ORDERED: AMLODIPINE BESYLATE 5 MG TAB PO SCH (09:00)
--- NOTE | 2025-02-26 09:14 | NUR ---
MED REC COMLPETE
--- NOTE | 2025-02-26 09:48 | NUR ---
UR CLINICAL REVIEW: 2 [place], MEETS INPT FOR GASTROENTERITIS WITH ACUTE ON CHRONIC RENAL FAILURE WITH ELECTROLYTE IMBALANCES IV FLUIDS, TREND LABS, MANAGE MEDICATIONS, IV MEDICATIONS MEDICARE INPT 02/25/25 @ 1940 ORDER MATCHES REG PLAN TO DC TO HOME WHEN MEDICALLY READY
--- NOTE | 2025-02-26 10:55 | NUR ---
VISITED DURING SPIRITUAL CARE ROUNDS. PT SUPPORTED BY FAMILY AND FRIEND IN ROOM. ALL IN OVERALL GOOD SPIRITS; NO IMMEDIATED NEEDS. BACK OFFICE MEDICAL ASSISTANT PROVIDED SUPPORTIVE PRESENCE, HOSPITALITY, PRAYER, FACILITATED INTERACTION WITH THERAPY ANIMAL. PT EXPRESSED GRATITUDE, HOPE, DECLINED PIPE STEM SAWYER VISIT.
--- NOTE | 2025-02-26 10:58 | NUR ---
THIS MORING AFTER DOING BLOOD SUGAR CHECK. PATIENT NEEDED TO GET UP AND USE THE BATHROOM. AFTER SHE WAS DONE. SHE WANTED TO BRUSH HER TEETH AND WASH HER FACE. SHE ALSO COMBED HER HAIR. PATIENT ALSO SET UP IN HER CHAIR WITH TWO WARM BLANKETS FOR BREAKFAST.
--- NOTE | 2025-02-26 11:00 | NUR ---
PATIENT IS NOW VISITING WITH HER FAMILY IN ROOM.
[2025-02-26] MEDS ORDERED: PHARMACY RENAL DOSE ADJUSTMENT 1 DOSE MISC PO SCH (12:00)
--- NOTE | 2025-02-26 13:10 | NUR ---
In and spoke with Kaylyn. She states she lives in a 2 story home with her laundry in the basement. She has hand rails and denies any issues with steps. Her daughter lives with her. Daughter is Camelia [phone]. Pt drives and does not use any DME. She online grocery shops. She denies any needs. She denies any financial or safety concerns. Pt plans on dc to home when she is medically cleared. She states she has multiple family members to assist her if needed. Denies needs from CM.
--- NOTE | 2025-02-26 14:24 | NUR ---
BT X4 QUADRANTS ACTIVE, ABDOMEN IS LARGE ROUND AND DISTENDED. NO EPISODES OF LOOSE STOOL SINCE EARLY THIS AM. PT DENIES ABDOMINAL PAIN OR DISCOMFORT.
--- NOTE | 2025-02-26 19:15 | NUR ---
REPORT RECEIVED FROM DARÍO ERNST. PATIENT SITTING UPRIGHT IN CHAIR. EYES OPEN, CHEST RISE EQUAL AND UNLABORED. PERSONAL BELONGINGS AND CALL LIGHT IN REACH OF PATIENT. PATIENT DENIES CONCERNS AT THIS TIME.
--- NOTE | 2025-02-26 20:55 | NUR ---
CALL LIGHT ANSWERED. 1PA/SBA PATIENT UP FROM CHAIR TO THE BATHROOM TO VOID. PATIENT DID PM AND ORAL CARE. PATIENT IS BACK IN BED. ROOM TIDIED. PRIMARY RNX2 WERE WITH PATIENT.
--- NOTE | 2025-02-26 21:10 | NUR ---
PATIENT IN BED WITH HOB RAISED. EYES OPEN, CHEST RISE EQUAL AND UNLABORED. ASSESSMENT AND VITAL SIGNS COMPLETED. SCHEDULED MEDICATIONS ADMINISTERED. PATIENT DENIES CONCERNS AT THIS TIME. IV FLUID INFUSING WITHOUT DIFFICULTY. CALL LIGHT AND PERSONAL BELONGINGS IN REACH.
--- NOTE | 2025-02-26 22:35 | NUR ---
PATIENT CALLED TO USE THE RESTROOM TO VOID. SBA. PATIENT IS BACK IN BED. NO OTHER NEEDS AT THIS TIME.
--- NOTE | 2025-02-26 23:21 | NUR ---
PATIENT IN BED WITH HOB RAISED. EYES CLOSED, CHEST RISE EQUAL AND UNLABORED. IV FLUID INFUSING WITHOUT DIFFICULTY. CALL LIGHT AND PERSONAL BELONGINGS IN REACH. NO APPARENT NEEDS NOTED AT THIS TIME.
[2025-02-27] VITALS (10 sets, daily range): BP systolic 134–158; BP diastolic 49–63
--- NOTE | 2025-02-27 00:26 | NUR ---
PATIENT CALL LIGHT ANSWERED. PATIENT IN BED WITH HOB RAISED, EYES OPEN, CHEST RISE EQUAL AND UNLABORED. PATIENT REPORTS SHE NEEDS TO URINATE. PATIENT ASSISTED TO BATHROOM, VOIDED, AND ASSISTED BACK TO BED WITHOUT DIFFICULTY. PATIENT DENIES FURTHER CONCERNS AT THIS TIME. IV FLUID INFUSING WITHOUT DIFFICULTY. PATIENT CALL LIGHT AND PERSONAL BELONGINGS IN REACH.
--- NOTE | 2025-02-27 01:30 | NUR ---
PATIENT IN BED WITH HOB RAISED. EYES CLOSED, CHEST RISE EVEN AND UNLABORED. IV FLUID INFUSING WITHOUT DIFFICULTY. CALL LIGHT AND PERSONAL BELONGINGS IN REACH OF PATIENT. NO APPARENT NEEDS NOTED AT THIS TIME.
--- NOTE | 2025-02-27 02:56 | NUR ---
PATIENT IN BED WITH HOB RAISED. EYES CLOSED, CHEST RISE EQUAL AND UNLABORED. IV FLUIDS INFUSING WITHOUT DIFFICULTY. CALL LIGHT AND PERSONAL BELONGINGS IN REACH OF PATIENT. NO IMMEDIATE NEEDS NOTED AT THIS TIME.
--- NOTE | 2025-02-27 03:52 | NUR ---
CALL LIGHT ANSWERED. SBA TO RESTROOM FOR VOID AND BACK TO BED. pt DENIES NEEDS FOR PRN PAIN MEDICATION OR ADDITIONAL NEEDS. CALL LIGHT IN REACH.
[2025-02-27 05:30] LABS: BASOPHILS 1.6 % (0.1-1.2); EOSINOPHILS 4.4 % (0.7-5.8); LYMPHOCYTES 21.6 % (19.3-51.7); MCH 28.1 PG (25.6-32.2); MCHC 34.7 g/dL (32.2-35.5); MCV 81.1 fL (79.4-94.8); MONOCYTES 10.5 % (4.7-12.5); NEUTROPHILS 61.6 % (34.0-71.1); RBC 3.38 M/uL (3.93-5.22)
--- NOTE | 2025-02-27 05:30 | NUR ---
PATIENT IN BED WITH HOB RAISED. EYES OPEN, CHEST RISE EQUAL AND UNLABORED. PATIENT DENIES CONCERNS AT THIS TIME. CALL LIGHT AND PERSONAL BELONGINGS IN REACH.
[2025-02-27 05:43] LABS: GLOMERULAR FILTRATION RATE,EST 22.0 mL/min (>60); UREA NITROGEN 47.0 mg/dL (7-18)
--- NOTE | 2025-02-27 07:05 | NUR ---
REPORT RECEIVED FROM CATERING SALES MANAGER RN ROSA AND YUNIOR. PATIENT IS LYING IN BED WITH HOB ELEVATED. PATIENT WITH EYES CLOSED AND RESPIRATIONS ARE EVEN AND UNLABORED. CALL LIGHT AND PERSONAL BELONGINGS ARE WITHIN REACH.
[2025-02-27] MEDS ORDERED: MAGNESIUM SULFATE 2 GM/50 ML BAG IV ONE (08:15)
[2025-02-27] MEDS ORDERED: POTASSIUM BICARBONATE/CIT AC 20 MEQ TABEF PO ONE (08:15)
[2025-02-27] MEDS ORDERED: levoFLOXacin 250 MG TAB PO SCH (09:00)
--- NOTE | 2025-02-27 09:40 | NUR ---
PATIENT IS SITTING IN THE CHAIR WITH BILATERAL LOWER EXTREMITIES ELEVATED. BREAKFAST TRAY REMAINS SET UP IN FRONT OF THE PATIENT. FULL ASSESSMENT COMPLETE AND DOCUMENTED IN THE CHART. PATIENT IS A SBA. PATIENT IS ON A 60 GRAM CARB DIET. BOWEL TONES ARE ACTIVE IN ALL FOUR QUADRANTS. ABDOMEN WITH MILD DISTENTION NOTED. IV SITE FLUSHED WITH 10 ML NORMAL SALINE AND IS SALINE LOCKED. IV DRESSING IS CLEAN, DRY, AND INTACT. PATIENT IS ON ROOM AIR AND LUNG SOUDNS ARE CLEAR THROUGHOUT. CARDIAC WITH NORMAL S1 QAND S2 ON AUSCULTATION. NO EDEMA NOTED. CAPILLARY REFILL IN THE UPPER AND LOWER EXTREMITIES IS LESS THAN 3 SECONDS. RADIAL AND PEDAL PULSES ARE STRONG BILATERALLY. SENSATION INTACT WITH NO COMPLAINTS OF NUMBNESS OR TINGLING. PATIENT REPORTED PAIN 3/10 IN THE LEFT HAND BUT IS NOT REQUESTING ANYTHING FOR PAIN AT THIS TIME. SKIN WITH SCATTERED BRUISING NOTED. PATIENT LAST BM 02/26/25. PATIENT ASSISTED WITH CONNECTING DEVICE TO WIFI. PATIENT STATED NO FURTHER NEEDS AT THIS TIME. CALL LIGHT AND PERSONAL BELONGINGS ARE WITHIN REACH.
--- NOTE | 2025-02-27 10:06 | NUR ---
ANSWERED PATIENT'S CALL LIGHT. PATIENT NEEDED TO USE THE BATHROOM. PATIENT BRUSHED HER TEETH AND WASHED HER FACE. BLOOD SUGAR CHECK DONE. PATIENT ATE HER BREAKFAST UP IN HER CHAIR. GOT HER TWO WARM BLANKETS TO PUT ON IN HER CHAIR AND ONE OVER HER BODY.
--- NOTE | 2025-02-27 10:11 | NUR ---
PATIENT IS SITTING IN THE CHAIR WITH BILATERAL LOWER EXTREMITIES ELEVATED. PATIENT IS LOOKING ON HER TABLET. PATIENT WITH EYES OPEN AND RESPIRATIONS ARE EVEN AND UNLABORED. CALL LIGHT AND PERSONAL BELONGINGS ARE WITHIN REACH.
--- NOTE | 2025-02-27 10:26 | NUR ---
PATIENT IN CHAIR AT [facility]. AUTOMOTIVE INSTRUCTOR ASSISTED PATIENT BACK TO CHAIR FROM BATHROOM. CALL LIGHT WITHIN REACH, NO FURTHER NEEDS AT THIS TIME.
--- NOTE | 2025-02-27 11:02 | NUR ---
VISITED DURING SPIRITUAL CARE ROUNDS. PT IN OVERALL GOOD SPIRITS, TALKED OF BLESSINGS, [employer]. FRONT END DRIVER PROVIDED SUPPORTIVE PRESENCE, HOSPITALITY, PRAYER.
--- NOTE | 2025-02-27 11:07 | NUR ---
PATIENT IS SITTING IN THE CHAIR WITH BILATERAL LOWER EXTREMITIES ELEVATED. PATIENT IS LOOKING ON HER TABLET. TV IS ON. PATIENT STATED NO FURTHER NEEDS AT THIS TIME. CALL LIGHT AND PERSONAL BELONGINGS ARE WITHIN REACH.
[2025-02-27] MEDS ORDERED: levoFLOXacin 250 MG TAB PO ONE (12:00)
--- NOTE | 2025-02-27 12:13 | NUR ---
MEDICATION ADMINISTERED ORDERED, SEE MAR. PT IS UP IN RECLINER AND REQUESTS TO USE THE RESTROOM. PT AMBULATES WITH MINIMAL ASSIT TO RESTROOM, VERBALIZES UNDERSTANDONG OF USING PULL CORD WHEN FINISHED.
--- NOTE | 2025-02-27 12:52 | NUR ---
PATIENT IS SITTING IN THE CHAIR AND SPEAKING ON THE PHONE. CALL LIGHT AND PERSONAL BELONGINGS ARE WITHIN REACH.
--- NOTE | 2025-02-27 13:30 | NUR ---
PATIENT IS SITTING UPRIGHT IN THE CHAIR WITH EYES OPEN AND RESPIRATIONS ARE EVEN AND UNLABORED. PATIENT IS WATCHING TV. CALL LIGHT AND PERSONAL BELONGINGS ARE WITHIN REACH.
--- NOTE | 2025-02-27 14:12 | NUR ---
PATIENT IS SITTING UPRIGHT IN THE CHAIR WITH EYES OPEN AND RESPIRATIONS ARE EVEN AND UNLABORED. PATIENT IS SPEAKING WITH A VISITOR WHO IS SITTING ON THE EDGE OF BED. CALL LIGHT AND PERSONAL BELONGINGS ARE WITHIN REACH.
--- NOTE | 2025-02-27 14:40 | NUR ---
DAUGHTER IN ROOM HELPING HER MOM WITH HER BED BATH. PUTTING ON A NEW GOWN AND NEW SOCKS. BROUGHT IN SHAMPOO CAP AND ALSO A WARM BLANKET BED LINENS CHANGED.
--- NOTE | 2025-02-27 14:57 | NUR ---
DISCHARGE REVIEW: REMAINS ON IV FLUIDS, TRENDING LABS, CHECKING UA, HOLDING NEPHROTOXIC MEDICATIONS. PLAN TO DC TO HOME WHEN MEDICALLY READY. ADD: 03/01/2025
--- NOTE | 2025-02-27 15:23 | NUR ---
PATIENT CHANGED HER MIND ON WASHING HER HAIR.
--- NOTE | 2025-02-27 15:43 | NUR ---
PATIENT IS SITTING UPRIGHT IN THE CHAIR. PATIENT WITH EYES OPEN AND RESPIRATIONS ARE EVEN AND UNLABORED. PATIENT RATED PAIN 0/10. IV SITE FLUSHED WITH 10 ML NORMAL SALINE. SLIGHT LEAKING NOTED AT THE IV SITE WITH INITIAL FLUSH. IV SITE IS CLEAN, DRY, AND INTACT. IV SITE SALINE LOCKED. PATIENT REPORTED DAUGHTER TOOK HOME THE SLING TO WASH AND BRING BACK. NEW SLING PROVIDED WHILE HER ORIGINAL SLING IS WITH THE DAUGHTER. PATIENT STATED NO FURTHER NEEDS AT THIS TIME. CALL LIGHT AND PERSONAL BELONGINGS ARE WITHIN REACH.
--- NOTE | 2025-02-27 16:07 | NUR ---
PATIENT IS SITTING UPRIGHT IN THE CHAIR AT THIS TIME. PATIENT WITH EYES OPEN AND RESPIRATIONS ARE EVEN AND UNLABORED. PATIENT IS WATCHING TV. CALL LIGHT AND PERSONAL BELONGINGS ARE WITHIN REACH.
--- NOTE | 2025-02-27 16:22 | NUR ---
Spoke with Kaylyn. She denies any needs. Wants to dc tomorrow if possible, but states he labs did not improve. She has an appt scheduled with Dr. Wei at [facility] for 03/18/25.I will call to check if this is ok to use. Pt states she will see Dr. Cox on Tue for a surgery eval and she hopes to have surgery on her R arm next Tuesday. Called and staff state pt will need a 40 min visit and they will schedule. She then spoke with nurse and they would like to keep the original visit. Pt to see Dr. Wei 03/18/25 at 2:30.
--- NOTE | 2025-02-27 18:02 | NUR ---
PATIENT ASSISTED BACK TO THE CHAIR WITH THIS RN IN ROOM. PATIENT WITH NO NEEDED ASSISTANCE. PATIENT IS NOW BACK IN THE CHAIR AND STATES THE RIGHT ARM SLING IS IN A BETTER POSITION. BILATERAL LOWER EXTREMITIES ELEVATED. PATIENT VOID 200 ML YELLOW URINE. PATIENT STATED NO FURTHER NEEDS AT THIS TIME. CALL LIGHT AND PERSONAL BELONGINGS ARE WITHIN REACH.
--- NOTE | 2025-02-27 18:29 | NUR ---
PATIENT REPORTED DIZZINESS TO SURVEY CAD TECHNICIAN AFTER AMBULATING TO THE BATHROOM. THIS RN ROUNDED ON THE PATIENT. PATIENT REPORTS THE DIZZINESS HAS GOTTEN BETTER SINCE LYING DOWN. PATIENT EDUCATED ON THE IMPORTANCE OF WALKING IN THE HALLWAY PRIOR TO GOING TO BED. PATIENT EXPRESSED UNDERTSANDING. PATIENT SISTER IS SITTING IN THE RECLINER AT BEDSIDE. PATIENT STATED NO FURTHER NEEDS AT THIS TIME. CALL LIGHT AND PERSONAL BELONGINGS ARE WITHIN REACH.
--- NOTE | 2025-02-27 19:10 | NUR ---
REPORT RECEIVED FROM LEANDRA CHANEL. pt SITTING IN THE CHAIR. BOARD UPDATED. WATER REFRESHED. pt DENIES ANY OTHER NEEDS AT THIS TIME. CALL LIGHT WITHIN REACH.
--- NOTE | 2025-02-27 20:44 | NUR ---
BOATS RENTER OBTAINED VITALS AND I&O. ICE WATER REFILLED. PT STATES NO FURTHER NEEDS AT THIS TIME. CALL LIGHT WITHIN REACH.
--- NOTE | 2025-02-27 21:00 | NUR ---
ASSESSMENT AND VITAL SIGNS DONE. SCHEDULED MEDS ADMINISTERED. BG CHECKED WITH A RESULTS OF 134. NO SS INSULIN NEEDED AT THIS TIME. IV ASSESSED, IV LEAKING. IV DC'D. NEW IV PLACED. pt TOLERATED WELL. pt DENIES ANY OTHER NEEDS AT THIS TIME. CALL LIGHT WITHIN REACH. pt BACK TO BED FROM USING THE BR, SBA. pt HAS A BRACE ON HER RIGHT ARM WITH SLING IN PLACE.
--- NOTE | 2025-02-27 22:57 | NUR ---
CALL LIGHT ANSWERED. PT NEEDED TO USE BATHROOM. SASH INSTALLER SBA TO BATHROOM. PT VOIDED AND ASSISTED BACK TO BED. PT STATES NO FURTHER NEEDS AT THIS TIME. CALL LIGHT WITHIN REACH.
--- NOTE | 2025-02-28 00:38 | NUR ---
pt RESTING IN THE WITH EYES CLOSED. RR EVEN AND UNLABORED. CALL LIGHT WITHIN REACH.
--- NOTE | 2025-02-28 01:31 | NUR ---
pt UP TO THE BR. SBA, pt BACK TO THE BED. pt DENIES ANY OTHER NEEDS AT THIS TIME. CALL LIGHT WITHIN REACH.
--- NOTE | 2025-02-28 03:22 | NUR ---
pt RESTING IN THE BED WITH EYES CLOSED. RR EVEN AND UNLABORED. CALL LIGHT WITHIN REACH.
[2025-02-28 05:25] VITALS: BP 150/64
--- NOTE | 2025-02-28 05:28 | NUR ---
CALL LIGHT ANSWERED. PT NEEDED TO USE BATHROOM. TOLL TICKET CLERK SBA TO BATHROOM. PT VOIDED AND ASSISTED BACK TO BED. VITALS AND I&O OBTAINED. PT STATES NO FURTHER NEEDS AT THIS TIME. CALL LIGHT WITHIN REACH.
[2025-02-28 05:38] LABS: GLOMERULAR FILTRATION RATE,EST 29.0 mL/min (>60); UREA NITROGEN 40.0 mg/dL (7-18)
--- NOTE | 2025-02-28 06:12 | NUR ---
VITAL SIGNS DONE. ASSESSMENT DONE. pt DENIES ANY OTHER NEEDS AT THIS TIME. CALL LIGHT WITHIN REACH.
[2025-02-28 06:31] VITALS: BP 150/64
--- NOTE | 2025-02-28 06:57 | NUR ---
REPORT RECEIVED FROM PARING MACHINE OPERATOR DARÍO DURBIN. PATIENT IS LYING IN BED WITH EYES CLOSED AND RESPIRATIONS ARE EVEN AND UNLABORED. CALL LIGHT AND PERSONAL BELONGINGS ARE WITHIN REACH.
--- NOTE | 2025-02-28 07:38 | NUR ---
SAGE LÓPEZ IS IN THE ROOM AT THIS TIME. PATIENT IS AMBULATING TO THE CHAIR.
[2025-02-28] MEDS ORDERED: MAGNESIUM SULFATE 2 GM/50 ML BAG IV ONE (08:00)
--- NOTE | 2025-02-28 08:01 | NUR ---
PATIENT IN CHAIR AT THIS TIME. SAGE ASSISTED PATIENT TO BATHROOM FROM BED AND SAGE LÓPEZ ASSISTED PATIENT FROM BATHROOM TO CHAIR. CALL LIGHT WITHIN REACH, NO FURTHER NEEDS AT THIS TIME.
--- NOTE | 2025-02-28 08:02 | NUR ---
PT SAT IN CHAIR FOR BREAKFAST, LINEN CHANGE COMPLETED. PT TALKING TO PHONE- NOT SURE IF SHE IS TALKING TO ANYONE? CALL LIGHT WITHIN REACH, PT REPORTS NEEDING NOTHING ELSE AT THIS TIME.
--- NOTE | 2025-02-28 08:25 | NUR ---
0800 AND 0900 MEDICATIONS ADMINISTERED PER THE EMAR. PATIENT IS SITTING UPRIGHT IN THE CHAIR AND EATING BREAKFAST. WET WASH CLOTH PROVIDED PER PATIENT REQUEST. PATIENT STATED NO FURTHER NEEDS AT THIS TIME. CALL LIGHT AND PERSONAL BELONGINGS ARE WITHIN REACH.
--- NOTE | 2025-02-28 09:10 | NUR ---
PAPER IS SITTING UPRIGHT IN THE CHAIR WITH EYES OPEN AND RESPIRATIONS ARE EVEN AND UNLABORED. PATIENT IS ALERT AND ORIENTED TIMES FOUR. MAGNESIUM SULFATE INFUSION COMPLETE. IV SITE FLUSHED WITH 10 ML NORMAL SALINE AND IS SALINE LOCKED. IV DRESSING IS CLEAN, DRY, AND INTACT. PATIENT IS A SBA TO THE BATHROOM. PATIENT IS ON A 60 GRAM CARB DIET. BOWEL TONES ARE ACTIVE IN ALL FOUR QUADRANTS. PATIENT REPORTS MILD ABDOMINAL DISTENTION IS NORMAL. PATIENT LAST BM WAS 02/26/25. SKIN WITH SCATTERED BRUISING NOTED. PATIENT IS ON ROOM AIR AND LUNG SOUNDS ARE CLEAR THROUGHOUT. CARDIAC WITH NORMAL S1 AND S2 ON AUSCULTATION. NO EDEMA NOTED. CAPILLARY REFILL IS LESS THAN 3 SECONDS IN THE UPPER AND LOWER EXTREMITIES BILATERALLY. SENSATION INTACT WITH NO COMPLAINTS OF NUMBNESS OR TINGLING. RADIAL PULSES STRONG BILATERALLY. PEDAL PULSES FAINT BILATERALLY. PATIENT STATED NO FURTHER NEEDS AT THIS TIME. BREAKFAST TRAY REMOVED PER PATIENT REQUEST. CALL LIGHT AND PERSONAL BELONGINGS ARE WITHIN REACH.
[2025-02-28 09:24] VITALS: BP 144/50
--- NOTE | 2025-02-28 09:25 | NUR ---
PT SITTING IN CHAIR FOR BREAKFAST. PT TALKING TO PHONE. LIGHTS ON IN THE ROOM AND BLINDS OPEN. CALL LIGHT WITHIN REACH, PT REPORTING NEEDING NOTHING ELSE AT THIS TIME.
[2025-02-28 09:34] VITALS: BP 144/50
[2025-02-28] MEDS ORDERED: LEVOFLOXACIN250 MG PO (09:49)
[2025-02-28] MEDS ORDERED: CEPHALEXIN500 MG PO (09:51)
--- NOTE | 2025-02-28 10:07 | NUR ---
PATIENT IS SITTING UPRIGHT IN THE CHAIR. PATIENT WITH EYES OPEN AND RESPIRATIONS ARE EVEN AND UNLABORED. TV IS ON. PATIENT EDUCATED ON DISCHARGE ORDER BEING IN BUT WAITING FOR THE PAPER WORK TO BE PRINTED. PATIENT EXPRESSED UNDERSTANDING. PATIENT STATED NO NEEDS AT THIS TIME. CALL LIGHT AND PERSONAL BELONGINGS ARE WITHIN REACH.
--- NOTE | 2025-02-28 10:10 | NUR ---
Pt denies needs. Home today. IM letter reviewed.
== END 2025-02-28 10:55 | disposition home or self-care (01) | DRG 683 ==
LOC: ED 17:31 → MS 19:46
PROVIDERS: Emergency Medicine; ADMIT Student in an Organized Health Care Education/Training Program; ATTEND Student in an Organized Health Care Education/Training Program
DX: N17.9 Acute kidney failure, unspecified (principal); E87.1 Hypo-osmolality and hyponatremia; S42.211A Unspecified displaced fracture of surgical neck of right humerus, initial encounter for closed fracture; A08.4 Viral intestinal infection, unspecified; I12.9 Hypertensive chronic kidney disease with stage 1 through stage 4 chronic kidney disease, or unspecified chronic kidney disease; N30.90 Cystitis, unspecified without hematuria; E11.22 Type 2 diabetes mellitus with diabetic chronic kidney disease; N18.9 Chronic kidney disease, unspecified; E87.6 Hypokalemia; E83.42 Hypomagnesemia; Z88.0 Allergy status to penicillin; Z79.84 Long term (current) use of oral hypoglycemic drugs; Z79.83 Long term (current) use of bisphosphonates; Z79.82 Long term (current) use of aspirin; Z79.4 Long term (current) use of insulin; Z79.899 Other long term (current) drug therapy; Z79.891 Long term (current) use of opiate analgesic; W18.30XA Fall on same level, unspecified, initial encounter
CPT/HCPCS: 36415; 80048; 80053; 81001; 83036; 83735; 84100; 85025; 87045; 87046; 87088; J1644; J1815; J3475; J7030; J7121